=== PATIENT | male | born 1940 | race Caucasian/White ===

== ENCOUNTER → 2017-08-31 15:51 | Outpatient (CLI) | payer MEDICARE, SELFPAY ==
[2017-08-31 16:39] LABS: Absolute Lymphocyte Count 1.52 X10^3/ul (0.83-4.51); Absolute Neutrophil Count 3.4 X10^3/uL (2.0-7.7); Basophil# 0.03 X10^3/uL; Basophil% 0.5 % (0-1); Eosinophil# 0.12 X10^3/uL; Eosinophils% 2.1 % (0-5); Hematocrit 46.1 % (40-54); Hemoglobin 15.7 g/dl (13.0-16.5); Lymphocyte # 1.52 X10^3/ul (4.0); Lymphocyte % 26.5 % (19-41); Mean Corp Hgb Conc 34.1 g/gl (32-36); Mean Corpuscular Hgb 32.8 pg (27.0-32.0); Mean Corpuscular Volume 96.2 fL (80-94); Mean Platelet Vol. 10.9 fl (6.2-12.0); Monocyte# 0.67 X10^3/uL; Monocyte% 11.7 % (0-10); Neutrophil # 3.38 X10^3/uL (2.7-7.7); Platelet Count 218 K/mm3 (150-450); RBC Distribution Width CV 13.2 % (11.6-14.6); RBC Distribution Width SD 45.5 fl (35.1-43.9); Red Blood Count 4.79 M/mm3 (4.6-6.2); White Blood Count 5.7 K/mm3 (4.4-11.0)
[2017-08-31 16:40] LABS: POSITIVE COUNT NO; POSITIVE DIFFERENTIAL NO; POSITIVE MORPHOLOGY NO
[2017-08-31 16:56] LABS: Vitamin B12 > 2000 pg/mL (211-911)
[2017-08-31 16:59] LABS: AST(SGOT) 32 U/L (15-37); Alanine Aminotransfer ALT/SGPT 37 U/L (16-61); Albumin, Serum 3.7 g/dL (3.2-5.0); Alkaline Phosphatase 61 U/L (45-117); Anion Gap 8 (5-15); BUN 23 mg/dL (7-18); BUN/Creat Ratio 22.3 RATIO (10-20); Calcium,Total 9.2 mg/dL (8.5-10.1); Chloride 103 mmol/L (98-107); Cholesterol 203 mg/dL (200); Creatinine, Serum 1.03 mg/dL (0.70-1.30); EST Glomerular Filtration Rate 74 mL/min (>60); Est Glom Filt Rate - Afr Amer 90 mL/min (>60); Globulin 3.8 g/dL (2.2-4.2); Glucose 87 mg/dL (74-106); High Density Lipoprotein 76 mg/dL; PSA,Total- Diagnostic 2.56 ng/mL (0.0-4.0); Potassium 4.4 mmol/L (3.5-5.1); Protein, Total 7.5 g/dL (6.4-8.2); Sodium Level 139 mmol/L (136-145); Thyroid Stim Hormone (TSH) 1.32 uIU/mL (0.358-3.74); Triglycerides 39 mg/dL; Very Low Density Lipoprotein 8 mg/dL (5-40)
== END ==
PROVIDERS: Family Provider Internal Medicine; PCP Internal Medicine; Visit Provider Internal Medicine
DX: R41.89 Other symptoms and signs involving cognitive functions and awareness (principal); I10 Essential (primary) hypertension; N40.0 Benign prostatic hyperplasia without lower urinary tract symptoms
CPT/HCPCS: 80053; 80061; 82607; 84153; 84443; 85025

== ENCOUNTER → 2018-06-19 10:12 | Outpatient (CLI) | payer MEDICARE, SELFPAY ==
--- NOTE | 2018-06-19 10:28 | MRI_ITS ---
STUDY: MRI BRAIN WITH AND WITHOUT CONTRAST REASON FOR EXAM: Male, 77 years old. Dementia, memory issues, speech issues TECHNIQUE: Standardized multiplanar fat and water weighted pulse sequences were obtained. 7 ml of Gadavist contrast material was administered intravenously for the contrast portion of the examination. COMPARISON: None. FINDINGS: Normal size of the ventricles and extra-axial spaces for the patient's age. There are multiple white matter hyperintensities, distributed throughout the deep white matter tracts of the cerebral hemispheres, consistent with moderate chronic white matter ischemic changes. Normal bilateral basal ganglia. Normal thalami. There is no extra-axial fluid accumulation. Normal flow voids within the major intracranial circulation suggesting patency by spin echo criteria. Normal venous enhancement. There is no enhancing intra-axial or extra-axial abnormality. Normal sella turcica, pituitary gland, infundibular stalk, optic chiasm and hypothalamus. Normal tectal plate and pineal gland. Normal midbrain, aubrie and medulla. Normal cerebellum. Normal basal cisterns. Normal bilateral temporal bones. Normal bilateral internal auditory canals. Left globe prosthesis. Cyst in the left maxillary sinus. Normal calvarium and skull base. Normal visualized soft tissue structures. Normal visualized upper cervical spine. MRI/Brain W/WO Contrast IMPRESSION: No evidence of infarct, hemorrhage, mass, or abnormal enhancement. Moderate microangiopathic white matter disease. Electronically Signed: Oscar Roa MD at 12:15 EST Tel , Service support ,
[2018-06-19 10:55] LABS: CREATININE FINGERSTICK 0.8 mg/dL (0.70-1.30); EGFR FINGERSTICK > 60.0000 mL/min (>60)
== END ==
PROVIDERS: Family Provider Internal Medicine; PCP Internal Medicine; Referring Provider Psychiatry & Neurology Neurology; Visit Provider Psychiatry & Neurology Neurology
DX: F03.90 Unspecified dementia, unspecified severity, without behavioral disturbance, psychotic disturbance, mood disturbance, and anxiety (principal)
CPT/HCPCS: 70553; A9585

== ENCOUNTER 2019-09-22 15:47 | Inpatient (IN) | payer MEDICARE, SELFPAY ==
[2019-09-22 15:47] VITALS: BP 124/73; PULSE 76; RESP 18; TEMP 37; O2SAT 97; BMI 25.1
--- NOTE | 2019-09-22 16:08 | EKG12_ITS ---
Test Reason : Blood Pressure : / mmHG Vent. Rate : 084 BPM Atrial Rate : 084 BPM P-R Int : 162 ms QRS Dur : 090 ms QT Int : 360 ms P-R-T Axes : 006 -24 024 degrees QTc Int : 425 ms Normal sinus rhythm Poor R-wave progression Confirmed by JAMIN DUTTA, MOOSE ([id number]), market editor BELLA HESS ([id number]) on 09/23/2019 1:51:27 PM Referred By: JENNIFER Confirmed By:MOOSE NEVILLE MD
--- NOTE | 2019-09-22 16:08 | CT_ITS ---
STUDY: CT BRAIN WITHOUT CONTRAST REASON FOR EXAM: Male, 78 years old. ALTERED MENTAL STATUS, UNABLE TO Walk, increased CONFUSION -- ALZHEIMER RADIATION DOSAGE (If Supplied By Facility): CTDIvol = ( 44.99 ) mGy, DLP = ( 796.11 ) mGycm TECHNIQUE: Transaxial CT imaging of the brain was performed without administration of intravenous contrast material. Individualized dose optimization techniques were used for this CT. COMPARISON: MRI Brain June 19, 2018 FINDINGS: Normal soft tissue structures. Normal calvarium. There is moderate cerebral atrophy with widening of the extra-axial spaces and ventricular dilatation. There are areas of decreased attenuation within the white matter tracts of the supratentorial brain, consistent with microvascular disease changes. Normal basal ganglia and thalami. Normal brainstem. Normal cerebellum. There is calcifications of the cavernous carotid arteries. There is no intracranial hemorrhage. There are no findings of an acute ischemic infarction. The left side maxillary mucosa retention cyst measuring 1.[address]/Brain/Head without Contrast IMPRESSION: Atrophy no visualized evidence of acute hemorrhage infarct or edema. Electronically Signed: Angie Ugarte MD at 17:02 EDT Tel , Service support ,
--- NOTE | 2019-09-22 16:12 | NURSING ---
NO OLD EKGS
--- NOTE | 2019-09-22 16:20 | RAD_ITS ---
STUDY: X-RAY CHEST REASON FOR EXAM: Male, 78 years old. Chest pain TECHNIQUE: Frontal view of the chest COMPARISON: None. FINDINGS: Mild bilateral lower lung zone infiltrates are present. There are no pleural effusions. There is no pneumothorax. The heart is normal in size. The visualized osseous structures are within normal limits. RAD/Chest 1 View (Portable) IMPRESSION: Mild bilateral lower lung zone infiltrates. Electronically Signed: Champ Huber, at 17:03 EDT Tel , Service support ,
[2019-09-22 16:23] LABS: Absolute Lymphocyte Count 0.89 X10^3/uL (0.83-4.51); Absolute Neutrophil Count 13.3 X10^3/uL (2.0-7.7); Basophil# 0.04 X10^3/uL; Basophil% 0.3 % (0-1); Hematocrit 47.3 % (40-54); Hemoglobin 15.6 g/dL (13.0-16.5); Lymphocyte # 0.89 X10^3/ul (4.0); Lymphocyte % 5.7 % (19-41); Mean Corpuscular Hgb 29.9 pg (27.0-32.0); Mean Corpuscular Volume 90.6 fL (80-94); Mean Platelet Vol. 10.1 fl (6.2-12.0); Monocyte# 1.39 X10^3/uL; Monocyte% 8.9 % (0-10); NRBC Flagged by Analyzer 0 % (0-5); Neutrophil # 13.27 X10^3/uL (2.7-7.7); Neutrophil % 84.5 % (47-70); POSITIVE MORPHOLOGY YES; Platelet Count 180 K/mm3 (150-450); RBC Distribution Width CV 12.9 % (11.6-14.6); RBC Distribution Width SD 42.5 fl (35.1-43.9); Red Blood Count 5.22 M/mm3 (4.6-6.2); White Blood Count 15.7 K/mm3 (4.4-11.0)
[2019-09-22 16:28] LABS: Differential Indicated SCAN CRITERIA MET
--- NOTE | 2019-09-22 16:33 | ED.DCSUM_ITS ---
- ER Visit Summary Date of Service: 09/22/19 Chief Complaint: Altered mental status History of Present Illness: The patient is a 78 M 3 of Alzheimer's dementia, hypertension and legally blind. According the family patient is normally pretty self-sufficient in spite of his chronic medical problems. And he states today he has had an altered mental status. Is having trouble walking and getting around. They deny any recent nausea, vomiting or diarrhea. No fever or chills. No known dysuria. No recent falls or head trauma. He is on no blood thinners. They state he was fine yesterday. He is also had no recent med changes in the last week. Patient is accompanied by his son and who are the informants. Physical Examination: Elderly male no acute distress vital signs are stable afebrile. Pulse ox 97% room air no signs of hypoxia. H EENT exam is legally blind. No facial droop. No signs of trauma. Moist because membranes. Tongue midline. Neck nontender no lymphadenopathy. Lungs clear to auscultation. Heart regular rhythm no murmur. Rate about 75. Abdomen soft nontender normal bowel sounds no peritoneal signs. Patient is moving all 4 extremities. He has 5 out of 5 penology teacher strength with both hands stronger on the right but he is right- hand dominant. Dorsi plantarflexion intact. Neurologically he is legally blind. He is awake. He is alert. He follows commands. He does not know day, month, year or president but family said that his baseline with his dementia not new. Back is nontender skin is unremarkable. Test Results: Chest x-ray chronic changes no acute process radiologist discussed the possible infiltrate clinically I do not think so. CT the brain shows no acute abnormality read by the radiologist reviewed by me. EKG is normal sinus rhythm rate 84 no acute signs of MS or ischemia. CBC shows elevated white count of 15,700. Normal hemoglobin 16 no bands. Chemistries unremarkable BUN of 23 creatinine 1.3 normal gap UA positive for infection positive nitrates 25-50 white cells 10-25 red cells no epithelial cells 3+ bacteria culture was sent. This was a cath specimen. Emergency Department Course and Treatment: Elderly male with mental status change. Treated with IV fluids and work-up. Treatment Plan: Patient treated with IV fluids. 1 g IV Rocephin for the UTI. Urine culture sent. Have hospitalist on page for admission. Disposition: [] Impression: Altered mental status Acute UTI History of dementia Legally blind This note was generated with [employer] dictation software. It may contain incorrect words, spelling, and punctuation that were not noted in review of the chart prior to signing ED Disposition - Plan for ED Patient: Referrals: Patrick Moscoso MD [Primary Care Provider] -
[2019-09-22 16:42] LABS: Anion Gap 7 (5-15); BUN 23 mg/dL (7-18); BUN/Creat Ratio 17.2 RATIO (10-20); Chloride 102 mmol/L (98-107); Creatinine, Serum 1.34 mg/dL (0.70-1.30); EST Glomerular Filtration Rate 54 mL/min (>60); Est Glom Filt Rate - Afr Amer 66 mL/min (>60); Estimated Creatinine Clearance 43.97 ml/min; Glucose 131 mg/dL (74-106); Potassium 3.9 mmol/L (3.5-5.1); Sodium Level 137 mmol/L (136-145)
[2019-09-22 16:59] LABS: Differential Comment SCANNED
[2019-09-22] MEDS: 0.9% Normal Saline 1,000 ML 150 ML IV ×2 (17:07→20:18)
[2019-09-22 17:35] LABS: Mucous, Urine 0 SEEN /hpf (<or=2+); Squamous Epithelial Cells - UA 0 SEEN /hpf (0-5)
[2019-09-22 17:37] LABS: Color, Urine Yellow (Yellow); Glucose, Dipstick Normal (Normal); Ketone-Dipstick 5 mg/dl (Negative); Leukocyte Esterase-Dipstick 500 /ul (Negative); Nitrite-Dipstick Positive (Negative); Occult Blood-Urine 150 /ul (Negative); Protein-Dipstick 30 mg/dl (Negative); Specific Gravity, Urine 1.015 (1.002-1.030); Urine Bilirubin Dipstick Negative (Negative); Urine Clarity Cloudy (Clear); Urine Urobilinogen Normal (Normal)
[2019-09-22 17:42] LABS: Red Blood Cells-Urine 10-25 SEEN /hpf (0-5)
[2019-09-22 17:43] LABS: Bacteria 3+ /hpf (None Seen); White Blood Cells 25-50 SEEN /hpf (0-5)
[2019-09-22 17:47] VITALS: BP 139/78; PULSE 70; RESP 26; O2SAT 95
[2019-09-22] MEDS: Ceftriaxone 1 GM/50 ML BAG IV (19:05)
[2019-09-22 19:07] VITALS: BP 124/71; PULSE 77; RESP 20; TEMP 38.3; O2SAT 94
[2019-09-22] MEDS: 0.9% Normal Saline 1,000 ML 999 ML IV (19:07)
[2019-09-22] MEDS: Acetaminophen 500 MG Tablet 1000 MG PO (19:18)
[2019-09-22 19:34] VITALS: RESP 20
[2019-09-22 19:38] VITALS: BP 116/68; PULSE 74; RESP 16; TEMP 36.8; O2SAT 94
[2019-09-22 19:40] VITALS: BMI 25.4
[2019-09-22 19:42] VITALS: BMI 25.4
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
[2019-09-22] MEDS: 0.9% Normal Saline 1,000 ML 100 ML IV (21:51)
[2019-09-22] MEDS: Enoxaparin 40 MG/0.4 ML Syringe SC (21:55)
[2019-09-22] MEDS: Memantine Hydrochloride 10 MG Tablet PO (21:56)
[2019-09-23] VITALS (10 sets, daily range): BP systolic 96–111; BP diastolic 44–64; PULSE 60–80; RESP 14–18; TEMP 36.6–38.3; O2SAT 88–94
[2019-09-23 05:47] LABS: Absolute Lymphocyte Count 1.15 X10^3/uL (0.83-4.51); Absolute Neutrophil Count 17.5 X10^3/uL (2.0-7.7); Basophil# 0.04 X10^3/uL; Basophil% 0.2 % (0-1); Eosinophil# 0.15 X10^3/uL; Eosinophils% 0.7 % (0-5); Hematocrit 40.9 % (40-54); Hemoglobin 13.5 g/dL (13.0-16.5); Lymphocyte # 1.15 X10^3/ul (4.0); Lymphocyte % 5.4 % (19-41); Mean Corpuscular Hgb 29.8 pg (27.0-32.0); Mean Corpuscular Volume 90.3 fL (80-94); Mean Platelet Vol. 10.7 fl (6.2-12.0); Monocyte# 2.09 X10^3/uL; Monocyte% 9.8 % (0-10); NRBC Flagged by Analyzer 0 % (0-5); Neutrophil # 17.47 X10^3/uL (2.7-7.7); Neutrophil % 81.6 % (47-70); POSITIVE DIFFERENTIAL YES; POSITIVE MORPHOLOGY YES; Platelet Count 145 K/mm3 (150-450); RBC Distribution Width CV 13.3 % (11.6-14.6); RBC Distribution Width SD 43.7 fl (35.1-43.9); Red Blood Count 4.53 M/mm3 (4.6-6.2); White Blood Count 21.4 K/mm3 (4.4-11.0)
[2019-09-23 05:48] LABS: Differential Indicated SCAN CRITERIA MET
[2019-09-23 06:07] LABS: Differential Comment SCANNED
[2019-09-23 06:11] LABS: Anion Gap 6 (5-15); BUN 21 mg/dL (7-18); Calcium,Total 8.3 mg/dL (8.5-10.1); Chloride 109 mmol/L (98-107); Creatinine, Serum 1.31 mg/dL (0.70-1.30); EST Glomerular Filtration Rate 56 mL/min (>60); Est Glom Filt Rate - Afr Amer 68 mL/min (>60); Estimated Creatinine Clearance 44.97 ml/min; Glucose 107 mg/dL (74-106); Potassium 3.9 mmol/L (3.5-5.1); Sodium Level 140 mmol/L (136-145)
[2019-09-23] MEDS: Tolterodine Tartrate 2 MG CAP.SA PO (09:05)
[2019-09-23] MEDS: Memantine Hydrochloride 10 MG Tablet PO ×2 (09:06→23:10)
[2019-09-23] MEDS: Polyethylene Glycol 3350 17 GM PACKET PO (09:06)
[2019-09-23] MEDS: Acetaminophen 325 MG Tablet 650 MG PO (09:07)
[2019-09-23] MEDS: Enoxaparin 40 MG/0.4 ML Syringe SC (09:08)
[2019-09-23] MEDS: 0.9% Normal Saline 1,000 ML 999 ML IV (10:24)
--- NOTE | 2019-09-23 10:38 | PN_ITS ---
Patient Problems: Active and Suspected Problems Acute encephalopathy (Acute) UTI (Acute) Subjective: Patient seen and examined. He was noted to be febrile this morning with temperature of 100 Fahrenheit. He still is confused on account of Alzheimer's dementia, but is able to answer questions. He denies any shortness of breath, vomiting, abdominal pain, diarrhea. Feels otherwise negative. Labs and vitals reviewed. WBC noted to have trended up to 21.4. Creatinine is down to 1.31. Pressure was 96/44 this morning. Vitals/I&O's: Vital Signs Temp Pulse Resp BP Pulse Ox 100 F H 70 14 96/44 L 93 09/23/19 09:56 09/23/19 09:56 09/23/19 09:56 09/23/19 09:56 09/23/19 09:56 Oxygen Flow Rate (L/min) 2 Oxygen Delivery Method Nasal Cannula Weight: 172 lb 2.896 oz Body Mass Index (BMI) 25.4 Intake and Output for Last 24 Hours 09/21/19 09/22/19 09/23/19 23:59 23:59 23:59 Intake Total 1760.0 / 1810.0 1050 / 1050 Balance 1760.0 / 1810.0 1050 / 1050 General: Alert, Cooperative, Confused, Disoriented, Lethargic HEENT: Atraumatic, PERRLA, EOMI, Normocephalic Oral: Dry Mucosa Neck: Supple, No JVD, Negative Carotid Bruits Lungs: Clear to auscultation, Normal air movement, No rhonchi, No wheeze, No rales Cardiovascular: Regular rate, Regular Rhythm, Normal S1, Normal S2, No murmurs Abdomen: Bowel Sounds Present, Soft, Non Tender, Non-Distended, No Hepato- splenomegaly Extremities: No clubbing, No cyanosis, No edema, Capillary Refill Less than 3 Seconds Skin: No rashes, No breakdown Musculoskeletal: No Tenderness to Palpation of Joints or Extremities Lymphatic: No Cervical, Supraclavicular, or Inguinal Adenopathy Neurological: Cranial nerves II-XII grossly intact, Neuro grossly intact, Motor Exam 5/5 strength throughout Psych/Mental Status: - - confused Laboratory Results 09/22/19 16:16: WBC 15.7 H, RBC 5.22, Hgb 15.6, Hct 47.3, MCV 90.6, MCH 29.9, MCHC 33.0, RDW Std Deviation 42.5, RDW Coeff of Ivana 12.9, Plt Count 180, MPV 10.1, Immature Gran % (Auto) 0.600, Neut % (Auto) 84.5 H, Lymph % (Auto) 5.7 L, George % (Auto) 8.9, Eos % (Auto) 0.0, Baso % (Auto) 0.3, Absolute Neuts (auto) 13.3 H, Absolute Lymphs (auto) 0.89, Nucleated RBC % 0, Differential Comment SCANNED 09/22/19 16:16: Sodium 137, Potassium 3.9, Chloride 102, Carbon Dioxide 28.0, Anion Gap 7, BUN 23 H, Creatinine 1.34 H, Estim Creat Clear Calc 43.97, Est GFR (MDRD) Af Amer 66, Est GFR (MDRD) Non-Af 54 L, BUN/Creatinine Ratio 17.2, Glucose 131 H, Calcium 9.0 09/22/19 17:25: Urine Color Yellow, Urine Clarity Cloudy, Urine pH 6.0, Ur Specific [place] 1.015, Urine Protein 30 H, Urine Glucose (UA) Normal, Urine Ketones 5 H, Urine Occult Blood 150 H, Urine Nitrite Positive H, Urine Bilirubin Negative, Urine Urobilinogen Normal, Ur Leukocyte Esterase 500 H, Urine RBC 10- 25 SEEN, Urine WBC 25-50 SEEN, Ur Squamous Epith Cells 0 SEEN, Urine Bacteria 3+, Urine Mucus 0 SEEN 09/23/19 05:10: WBC 21.4 H, RBC 4.53 L, Hgb 13.5, Hct 40.9, MCV 90.3, MCH 29.8, MCHC 33.0, RDW Std Deviation 43.7, RDW Coeff of Ivana 13.3, Plt Count 145 L, MPV 10.7, Immature Gran % (Auto) 2.300 H, Neut % (Auto) 81.6 H, Lymph % (Auto) 5.4 L , George % (Auto) 9.8, Eos % (Auto) 0.7, Baso % (Auto) 0.2, Absolute Neuts (auto) 17.5 H, Absolute Lymphs (auto) 1.15, Nucleated RBC % 0, Differential Comment SCANNED, Diff Path Review May foll 09/23/19 05:10: Sodium 140, Potassium 3.9, Chloride 109 H, Carbon Dioxide 25.0, Anion Gap 6, BUN 21 H, Creatinine 1.31 H, Estim Creat Clear Calc 44.97, Est GFR (MDRD) Af Amer 68, Est GFR (MDRD) Non-Af 56 L, BUN/Creatinine Ratio 16.0, Glucose 107 H, Calcium 8.3 L Diagnostic Data Brain CT 09/22/19 16:08 IMPRESSION: Atrophy no visualized evidence of acute hemorrhage infarct or edema. Electronically Signed: Angie Ugarte MD at 17:02 EDT Tel , Service support , Chest X-Ray 09/22/19 16:20 IMPRESSION: Mild bilateral lower lung zone infiltrates. Electronically Signed: Champ Huber at 17:03 EDT Tel , Service support , Current Medications Acetaminophen (Tylenol) 650 mg PO Q6H PRN PRN PRN Reason: Pain Score 1-10/Temp > 100.7 F Last Admin: 09/23/19 09:07 Dose: 650 mg Documented by: Albuterol Sulfate (Ventolin Aerosols) 2.5 mg INHALATION Q2H PRN PRN PRN Reason: Shortness of Breath/Wheezing Amlodipine Besylate (Norvasc) 5 mg PO DAILY [facility] Last Admin: 09/23/19 09:07 Dose: Not Given Documented by: Enoxaparin Sodium (Lovenox) 40 mg SC DAILY [facility] Last Admin: 09/23/19 09:08 Dose: 40 mg Documented by: Glucagon () 1 mg IM .X1 PRN PRN Reason: Hypoglycemia Dextrose (Dextrose 10%-Water) 250 mls @ 999 mls/hr IV .Q16M PRN; Protocol PRN Reason: HYPOGLYCEMIA Sodium Chloride () 1,000 mls @ 999 mls/hr IV .Q1H1M ONE Stop: 09/23/19 11:10 Last Admin: 09/23/19 10:24 Dose: 999 mls/hr Documented by: Piperacillin Sod/Tazobactam (Sod 3.375 gm/ Sodium Chloride) 50 mls @ 12.5 mls /hr IV Q8 [facility] Memantine (Namenda) 10 mg PO BID [facility] Last Admin: 09/23/19 09:06 Dose: 10 mg Documented by: Morphine Sulfate () 2 mg IV Q3H PRN PRN PRN Reason: Pain Score 6-10/10 Ondansetron HCl (Zofran) 4 mg IV Q8H PRN PRN PRN Reason: NAUSEA/VOMITING Oxycodone HCl (Oxyir) 5 mg PO Q4H PRN PRN PRN Reason: Pain Score 4-5/10 Polyethylene Glycol (Miralax) 17 gm PO DAILY [facility] Last Admin: 09/23/19 09:06 Dose: 17 gm Documented by: Prochlorperazine Edisylate (Compazine Iv) 5 mg IV Q4H PRN PRN PRN Reason: Breakthrough nausea/vomiting Senna/Docusate Sodium (Senokot-S, Janessa-Colace) 2 tablet PO BID PRN PRN PRN Reason: Constipation Tolterodine Tartrate (Detrol La) 2 mg PO DAILY [facility] Last Admin: 09/23/19 09:05 Dose: 2 mg Documented by: STROKE Vital Signs/Narrative: Vital Signs Temp Pulse Resp BP Pulse Ox 09/23/19 09:56 100 F H 70 14 96/44 L 93 09/23/19 08:51 101.0 F H 80 17 111/56 L 92 09/23/19 07:45 99.3 F H 77 14 109/54 L 88 Medical Necessity - Tobacco Use Smoking Status: Never smoker Tobacco Use: Non-smoker Assessment/Plan All Active Problems Acute encephalopathy (Acute) UTI (Acute) 1.UTI * UA on admission showed 3+ bacteria. Temperature is up to 100 Fahrenheit this morning WBC has trended up for 15-21.4. * Will order blood cultures and lactic acid. Urine cultures pending. Will broaden antibiotic from IV ceftriaxone to IV Zosyn. * Hydrate with IV fluid normal saline at 150 cc/h. * 2. Acute metabolic encephalopathy due to UTI * Does have baseline dementia but family says he is much more confused than usual. Management as under 1. 3. CARLOS A * And was 1.34 on admission and is trended down to 1.31. Continue hydration with IV fluids. Baseline creatinine is around 1. * 4. Hypertension: Hold amlodipine on account of hypotension this morning. Blood pressure is down to 96/44. We will give a bolus of normal saline 1 L and monitor blood pressure. 5. Hypotension: As under 1. 6. Alzheimer's dementia: On memantine DVT prophylaxis: On Lovenox Code Status: DNRCCA Inpatient E&M: 14023 Subs Hosp L3
[2019-09-23 11:15] LABS: Lactic Acid 1.9 mmol/L (0.4-1.9)
[2019-09-23] MEDS: 0.9% Normal Saline 1,000 ML 150 ML IV ×2 (11:30→18:29)
--- NOTE | 2019-09-23 12:10 | CASEMGMT ---
RN CM Assessment Introduced role of RN CM to patient Yamileth in private waiting area. Patient with h/o Alzheimers Dementia. agrees to s/w this insurance underwriter sales for RNCM assessment. Care providers, pharmacy, and demographics verified. Presentation: AMS Admit Dx: AMS, UTI Re-Admit: No Barriers/Issues: states patient has Alzheimers Dementia and has been Independent with ADLs, however states that she feels patient has not been doing a very well with ADLs lately and needing Aide assistance. States that she is in the process of setting up an assessment through her [employer] with [employer]. This insurance underwriter sales discussed HH skilled need for an Aide to accompanym provided an In Network list- states preference would be [facility]. Also provided Fret[employer] String Instrument Repairer resources if HHC Skilled need not met upon Stability and readiness for DC from hospital. States Over income qualification for [facility] and patient is not a . Patient is legally blind- since a kid. PCP: Patrick Moscoso Specialists: Derm, Neuro- Dr Guerrero- has not visited since changing office location to [facility] Pharmacy: [facility] Insurance: [facility] Rx Benefit: Yes LNOK: Yamileth Saucedo LW/HPOA: [facility] has both, will give staff them to place copy on file. HPOA- Yamileth Saucedo Living Arrangements: Lives with in a [address] set up, has basement. 2 steps to enter through the garage ADL?s: Independent with ambulation and ADLs- see issue above Transportation: DME: CPAP- does not use. Denies any other DME HHC: None SNF: None Goal: Home with HHC- [facility] Preference. DC PLAN: Home with HH for Aide/SN/Possible SW/- RNCM to follow for any possible PT need. TONY Ayon
[2019-09-23 14:36] LABS: Pathologist Review Reviewed
[2019-09-24] MEDS: 0.9% Normal Saline 1,000 ML 150 ML IV ×4 (00:55→22:04)
[2019-09-24 02:34] VITALS: BP 107/61; PULSE 64; RESP 20; TEMP 36.6; O2SAT 94
[2019-09-24 06:32] LABS: Absolute Lymphocyte Count 1.45 X10^3/uL (0.83-4.51); Absolute Neutrophil Count 11.1 X10^3/uL (2.0-7.7); Basophil# 0.04 X10^3/uL; Basophil% 0.3 % (0-1); Eosinophil# 0.21 X10^3/uL; Eosinophils% 1.4 % (0-5); Hematocrit 38.1 % (40-54); Hemoglobin 12.8 g/dL (13.0-16.5); Lymphocyte # 1.45 X10^3/ul (4.0); Lymphocyte % 9.7 % (19-41); Mean Corp Hgb Conc 33.6 g/dL (32-36); Mean Corpuscular Hgb 30.5 pg (27.0-32.0); Mean Corpuscular Volume 90.7 fL (80-94); Mean Platelet Vol. 11.4 fl (6.2-12.0); Monocyte# 2.06 X10^3/uL; Monocyte% 13.7 % (0-10); NRBC Flagged by Analyzer 0 % (0-5); Neutrophil # 11.13 X10^3/uL (2.7-7.7); Neutrophil % 74.1 % (47-70); POSITIVE DIFFERENTIAL YES; Platelet Count 114 K/mm3 (150-450); RBC Distribution Width CV 13.5 % (11.6-14.6); RBC Distribution Width SD 44.4 fl (35.1-43.9)
[2019-09-24 06:37] LABS: Differential Indicated SCAN CRITERIA MET
[2019-09-24 06:57] LABS: Anion Gap 6 (5-15); BUN 17 mg/dL (7-18); BUN/Creat Ratio 13.6 RATIO (10-20); Calcium,Total 7.8 mg/dL (8.5-10.1); Chloride 113 mmol/L (98-107); Creatinine, Serum 1.25 mg/dL (0.70-1.30); EST Glomerular Filtration Rate 59 mL/min (>60); Est Glom Filt Rate - Afr Amer 71 mL/min (>60); Estimated Creatinine Clearance 47.13 ml/min; Glucose 93 mg/dL (74-106); Potassium 3.7 mmol/L (3.5-5.1); Sodium Level 142 mmol/L (136-145)
[2019-09-24 07:02] LABS: Differential Comment SCANNED
[2019-09-24 07:51] VITALS: BP 105/64; PULSE 57; RESP 16; TEMP 36.8; O2SAT 92
[2019-09-24] MEDS: Enoxaparin 40 MG/0.4 ML Syringe SC (09:27)
[2019-09-24] MEDS: Memantine Hydrochloride 10 MG Tablet PO ×2 (09:27→22:04)
[2019-09-24] MEDS: Polyethylene Glycol 3350 17 GM PACKET PO (09:27)
[2019-09-24] MEDS: Tolterodine Tartrate 2 MG CAP.SA PO (09:27)
[2019-09-24 11:33] VITALS: BP 128/77; PULSE 61; RESP 16; TEMP 36.8; O2SAT 92
--- NOTE | 2019-09-24 12:10 | PN_ITS ---
Patient Problems: Active and Suspected Problems Acute encephalopathy (Acute) UTI (Acute) Subjective: Patient seen and examined. Per his nurse, patient was agitated overnight trying to pull out his IV lines. Patient looks calm this morning was able to ambulate with therapy. He was able to answer questions and denied any fever or chills, nausea vomiting, cough, chest pain, abdominal pain, diarrhea. Review of systems otherwise negative. Labs and vitals reviewed. WBC is down to 15 today. Creatinine is 1.25. He has remained afebrile. Vitals/I&O's: Vital Signs Temp Pulse Resp BP Pulse Ox 98.2 F 61 16 128/77 H 92 09/24/19 11:33 09/24/19 11:33 09/24/19 11:33 09/24/19 11:33 09/24/19 11:33 Oxygen Flow Rate (L/min) 2 Oxygen Delivery Method Room Air Weight: 172 lb 2.896 oz Body Mass Index (BMI) 25.4 Intake and Output for Last 24 Hours 09/22/19 09/23/19 09/24/19 23:59 23:59 23:59 Intake Total 1760.0 / 1810.0 3750.0 / 3760.0 2525 / 2525 Balance 1760.0 / 1810.0 3750.0 / 3760.0 2525 / 2525 General: Alert, Cooperative, Confused, HEENT: Atraumatic, PERRLA, EOMI, Normocephalic Oral: Dry Mucosa Neck: Supple, No JVD, Negative Carotid Bruits Lungs: Clear to auscultation, Normal air movement, No rhonchi, No wheeze, No rales Cardiovascular: Regular rate, Regular Rhythm, Normal S1, Normal S2, No murmurs Abdomen: Bowel Sounds Present, Soft, Non Tender, Non-Distended, No Hepato- splenomegaly Extremities: No clubbing, No cyanosis, No edema, Capillary Refill Less than 3 Seconds Skin: No rashes, No breakdown Musculoskeletal: No Tenderness to Palpation of Joints or Extremities Lymphatic: No Cervical, Supraclavicular, or Inguinal Adenopathy Neurological: Cranial nerves II-XII grossly intact, Neuro grossly intact, Motor Exam 5/5 strength throughout Psych/Mental Status: - - confused Microbiology Past 72 Hours 09/22/19 17:25 Urine Catheter - Catheter Urine Culture - Preliminary Presumptive E. coli Laboratory Results 09/23/19 05:10: Diff Path Review Reviewed 09/24/19 05:10: WBC 15.0 H, RBC 4.20 L, Hgb 12.8 L, Hct 38.1 L, MCV 90.7, MCH 30.5, MCHC 33.6, RDW Std Deviation 44.4 H, RDW Coeff of Ivana 13.5, Plt Count 114 L, MPV 11.4, Immature Gran % (Auto) 0.800, Neut % (Auto) 74.1 H, Lymph % (Auto) 9.7 L, [place] % (Auto) 13.7 H, Eos % (Auto) 1.4, Baso % (Auto) 0.3, Absolute Neuts (auto) 11.1 H, Absolute Lymphs (auto) 1.45, Nucleated RBC % 0, Differential Comment SCANNED, Diff Path Review May foll 09/24/19 05:10: Sodium 142, Potassium 3.7, Chloride 113 H, Carbon Dioxide 23.0, Anion Gap 6, BUN 17, Creatinine 1.25, Estim Creat Clear Calc 47.13, Est GFR (MDRD) Af Amer 71, Est GFR (MDRD) Non-Af 59 L, BUN/Creatinine Ratio 13.6, Glucose 93, Calcium 7.8 L Diagnostic Data Brain CT 09/22/19 16:08 IMPRESSION: Atrophy no visualized evidence of acute hemorrhage infarct or edema. Electronically Signed: Angie Ugarte MD at 17:02 EDT Tel , Service support , Chest X-Ray 09/22/19 16:20 IMPRESSION: Mild bilateral lower lung zone infiltrates. Electronically Signed: Champ Huber, at 17:03 EDT Tel , Service support , Current Medications Acetaminophen (Tylenol) 650 mg PO Q6H PRN PRN PRN Reason: Pain Score 1-10/Temp > 100.7 F Last Admin: 09/23/19 09:07 Dose: 650 mg Documented by: Albuterol Sulfate (Ventolin Aerosols) 2.5 mg INHALATION Q2H PRN PRN PRN Reason: Shortness of Breath/Wheezing Amlodipine Besylate (Norvasc) 5 mg PO DAILY [facility] Last Admin: 09/23/19 09:07 Dose: Not Given Documented by: Enoxaparin Sodium (Lovenox) 40 mg SC DAILY [facility] Last Admin: 09/24/19 09:27 Dose: 40 mg Documented by: Glucagon () 1 mg IM .X1 PRN PRN Reason: Hypoglycemia Dextrose (Dextrose 10%-Water) 250 mls @ 999 mls/hr IV .Q16M PRN; Protocol PRN Reason: HYPOGLYCEMIA Piperacillin Sod/Tazobactam (Sod 3.375 gm/ Sodium Chloride) 50 mls @ 12.5 mls/hr IV Q8 [facility] Last Infusion: 09/24/19 10:47 Dose: Infused Documented by: Sodium Chloride () 1,000 mls @ 150 mls/hr IV .Q6H40M [facility] Last Admin: 09/24/19 07:59 Dose: 150 mls/hr Documented by: Memantine (Namenda) 10 mg PO BID [facility] Last Admin: 09/24/19 09:27 Dose: 10 mg Documented by: Morphine Sulfate () 2 mg IV Q3H PRN PRN PRN Reason: Pain Score 6-10/10 Ondansetron HCl (Zofran) 4 mg IV Q8H PRN PRN PRN Reason: NAUSEA/VOMITING Oxycodone HCl (Oxyir) 5 mg PO Q4H PRN PRN PRN Reason: Pain Score 4-5/10 Polyethylene Glycol (Miralax) 17 gm PO DAILY [facility] Last Admin: 09/24/19 09:27 Dose: 17 gm Documented by: Prochlorperazine Edisylate (Compazine Iv) 5 mg IV Q4H PRN PRN PRN Reason: Breakthrough nausea/vomiting Senna/Docusate Sodium (Senokot-S, Janessa-Colace) 2 tablet PO BID PRN PRN PRN Reason: Constipation Tolterodine Tartrate (Detrol La) 2 mg PO DAILY [facility] Last Admin: 09/24/19 09:27 Dose: 2 mg Documented by: STROKE Vital Signs/Narrative: Vital Signs Temp Pulse Resp BP Pulse Ox 09/24/19 11:33 98.2 F 61 16 128/77 H 92 Medical Necessity - Tobacco Use Smoking Status: Never smoker Tobacco Use: Non-smoker Assessment/Plan All Active Problems Acute encephalopathy (Acute) UTI (Acute) 1.UTI * UA on admission showed 3+ bacteria. * Temperature has settled. WBC is down to 15. * Cultured E. coli, sensitive to ceftriaxone and ciprofloxacin. * Continue with IV Zosyn for today until white cell count trends down some more. * * 2. Acute metabolic encephalopathy due to UTI * Does have baseline dementia but family says he is much more confused than usual. Management as under 1. 3. CARLOS A * Resolved. * 4. Hypertension: Amlodipine was held on admission on account of hypotension. Blood pressures however normalized and is 128/77. Will resume BP meds. 5. Hypotension: Solved. 6. Alzheimer's dementia: On memantine DVT prophylaxis: On Lovenox Code Status: DNRCCA Inpatient E&M: 73395 Subs Hosp L2
[2019-09-24 12:33] LABS: Pathologist Review Reviewed
[2019-09-24 14:27] VITALS: BP 112/70; PULSE 64; RESP 16; TEMP 36.9; O2SAT 93
[2019-09-24 20:36] VITALS: BP 138/75; PULSE 70; RESP 16; TEMP 37.1; O2SAT 92
[2019-09-25 02:35] VITALS: BP 144/86; PULSE 70; RESP 16; TEMP 37; O2SAT 92
[2019-09-25] MEDS: 0.9% Normal Saline 1,000 ML 150 ML IV (05:52)
[2019-09-25 06:37] LABS: Absolute Lymphocyte Count 1.31 X10^3/uL (0.83-4.51); Absolute Neutrophil Count 9.1 X10^3/uL (2.0-7.7); Basophil# 0.03 X10^3/uL; Basophil% 0.2 % (0-1); Eosinophil# 0.35 X10^3/uL; Eosinophils% 2.8 % (0-5); Hematocrit 41.8 % (40-54); Hemoglobin 14.2 g/dL (13.0-16.5); Lymphocyte # 1.31 X10^3/ul (4.0); Lymphocyte % 10.4 % (19-41); Mean Corpuscular Hgb 30.3 pg (27.0-32.0); Mean Corpuscular Volume 89.1 fL (80-94); Mean Platelet Vol. 11.5 fl (6.2-12.0); Monocyte# 1.78 X10^3/uL; Monocyte% 14.1 % (0-10); NRBC Flagged by Analyzer 0 % (0-5); Neutrophil # 9.07 X10^3/uL (2.7-7.7); Neutrophil % 71.9 % (47-70); POSITIVE DIFFERENTIAL YES; Platelet Count 127 K/mm3 (150-450); RBC Distribution Width CV 13.2 % (11.6-14.6); RBC Distribution Width SD 43.1 fl (35.1-43.9); Red Blood Count 4.69 M/mm3 (4.6-6.2); White Blood Count 12.6 K/mm3 (4.4-11.0)
[2019-09-25 06:43] LABS: Differential Indicated SCAN CRITERIA MET
[2019-09-25 07:01] LABS: Anion Gap 6 (5-15); BUN 12 mg/dL (7-18); BUN/Creat Ratio 10.7 RATIO (10-20); Calcium,Total 7.9 mg/dL (8.5-10.1); Chloride 112 mmol/L (98-107); Creatinine, Serum 1.12 mg/dL (0.70-1.30); EST Glomerular Filtration Rate 67 mL/min (>60); Est Glom Filt Rate - Afr Amer 81 mL/min (>60); Glucose 86 mg/dL (74-106); Potassium 3.4 mmol/L (3.5-5.1); Sodium Level 142 mmol/L (136-145)
[2019-09-25 07:02] LABS: Differential Comment SCANNED; Platelet Estimate SLT DEC (ADEQ)
[2019-09-25 07:38] VITALS: O2SAT 87
[2019-09-25 08:01] VITALS: BP 154/85; PULSE 60; RESP 16; TEMP 36.9; O2SAT 93
[2019-09-25] MEDS: Tolterodine Tartrate 2 MG CAP.SA PO (08:13)
[2019-09-25] MEDS: Enoxaparin 40 MG/0.4 ML Syringe SC (08:13)
[2019-09-25] MEDS: Memantine Hydrochloride 10 MG Tablet PO (08:13)
[2019-09-25] MEDS: Polyethylene Glycol 3350 17 GM PACKET PO (08:14)
[2019-09-25 09:49] LABS: Pathologist Review Reviewed
--- NOTE | 2019-09-25 10:30 | CASEMGMT ---
Addendum entered by Nini Moya 09/25/19 11:54: JOSE ALBERTO GUY received call back from Florentin at [facility] and they are able to accept the patient. RN CM will fax discharge paperwork when available. Original Note: JOSE ALBERTO GUY in to discuss discharge planning with and patient. would like [facility] at home at discharge. JOSE ALBERTO GUY sent referral and awaiting call back for acceptance. JOSE ALBERTO GUY will continue to monitor this patient and plan for a safe discharge.
--- NOTE | 2019-09-25 11:50 | PCM.DC ---
- Discharge Diagnoses Current Active Problems: Current Active and Chronic Problems Acute encephalopathy (Acute) Alzheimer's dementia (Chronic) UTI (Acute) Hypertension (Chronic) Urge incontinence (Chronic) You will use the following diet at home:: Cardiac Your food should be the consistency of: Regular Your liquids should be the consistency of: Regular/Thin Discharge Activity: Return to Normal Activity Weight Bearing Status: Weight bearing as tolerated Call your doctor if you observe: Fever of 101 or Higher, Shortness of breath, Dizziness, Fainting spells Instructions: Understanding Urinary Tract Infections (UTIs) Allergies/Adverse Reactions: Allergies No Known Allergies Allergy (Verified 09/22/19 15:50) Medications to take at Discharge Amlodipine [Norvasc] 5 mg PO DAILY 09/22/19 Memantine HCl 10 mg PO BID 09/22/19 Multivit-Min/FA/Lycopen/Lutein [Centrum Silver Men Tablet] 1 tab PO DAILY 09/22/19 Oxybutynin Chloride [Ditropan Xl] 10 mg PO DAILY 09/22/19 Cefdinir [Omnicef [equiv]] 300 mg PO Q12H #8 cap 09/25/19 The following prescriptions were given: Cefdinir [Omnicef [equiv]] 300 mg PO Q12H #8 cap Transmission Status: Pending to [facility] [facility] Primary Care Physician: Patrick Moscoso MD [Primary Care Provider] - Please follow up with your Primary Care Physician in: one week Test Results: Test results from this visit will be discussed in further detail at your follow-up appointment, if applicable. Proposed Discharge Date: 09/25/19
--- NOTE | 2019-09-25 11:53 | PCM.DC.SUM ---
Discharge Date and Diagnosis Date of Admission: 09/22/19 Date of Discharge: 09/25/19 - Primary Discharge Diagnosis Active and Suspected Problems Acute encephalopathy (Acute) UTI (Acute) - Secondary Discharge Diagnosis Chronic Problems Alzheimer's dementia (Chronic) Hypertension (Chronic) Urge incontinence (Chronic) Hospital Course and Treatment Imaging Results: Diagnostic Data Brain CT 09/22/19 16:08 IMPRESSION: Atrophy no visualized evidence of acute hemorrhage infarct or edema. Electronically Signed: Angie Ugarte MD at 17:02 EDT Tel , Service support , Chest X-Ray 09/22/19 16:20 IMPRESSION: Mild bilateral lower lung zone infiltrates. Electronically Signed: Champ Huber, at 17:03 EDT Tel , Service support , Operations: None Procedures: None Summary of Care Provided: The patient is a 78 year old M with a past medical history as outlined was admitted through the ED on 09/22/2019 with a complaint of altered mental status for 1 day prior to admission. Patient has a history of Alzheimer's dementia and is also legally blind. He had had a history of urgent continence as well. On admission, he was vitally stable. Leukocytosis was present with white cell count of 15.7%. Creatinine was 1.34 UA was positive for UTI. Was admitted and managed for acute metabolic encephalopathy due to UTI. He was resuscitated with IV fluids and started on IV ceftriaxone. His white cell count initially trended up to 21.4 from 15.7. Antibiotics were therefore switched to IV Zosyn. White cell count then trended down eventually to 12.6 on day of discharge. Urine cultured gram-negative rods and lactose fermenting presumptive E. coli. He remained stable and was discharged home with home health care on 09/25/2019 with a prescription for p.o. Omnicef for 4 days. Blood cultures were negative after 48 hours. He is to follow-up with his primary care doctor within 1 week. Patient seen and examined prior to discharge. He had no complaints. was by his bedside. Review systems otherwise negative. Labs and vitals reviewed. Home medication reviewed and reconciled. o/e: Vital Signs Height 5 ft 9 in Weight: 172 lb 2.896 oz Weight in Pounds 172.2 lbs Pulse Ox 93 Temperature 98.5 F Pulse Rate 60 Respiratory Rate 16 Blood Pressure 154/85 Blood Pressure Position Semi-Fowlers [] General: Alert, Cooperative, Confused, HEENT: Atraumatic, PERRLA, EOMI, Normocephalic Oral: Dry Mucosa Neck: Supple, No JVD, Negative Carotid Bruits Lungs: Clear to auscultation, Normal air movement, No rhonchi, No wheeze, No rales Cardiovascular: Regular rate, Regular Rhythm, Normal S1, Normal S2, No murmurs Abdomen: Bowel Sounds Present, Soft, Non Tender, Non-Distended, No Hepato-splenomegaly Extremities: No clubbing, No cyanosis, No edema, Capillary Refill Less than 3 Seconds Skin: No rashes, No breakdown Musculoskeletal: No Tenderness to Palpation of Joints or Extremities Lymphatic: No Cervical, Supraclavicular, or Inguinal Adenopathy Neurological: Cranial nerves II-XII grossly intact, Neuro grossly intact, Motor Exam 5/5 strength throughout Psych/Mental Status: - - normal affect Plan as above. - Physical Exam Vitals/I&O's: Vital Signs Temp Pulse Resp BP Pulse Ox 98.5 F 60 16 154/85 H 93 09/25/19 08:01 09/25/19 08:01 09/25/19 08:01 09/25/19 08:01 09/25/19 08:01 Oxygen Flow Rate (L/min) 2 Oxygen Delivery Method Nasal Cannula Weight: 172 lb 2.896 oz Body Mass Index (BMI) 25.4 Intake and Output for Last 24 Hours 09/23/19 09/24/19 09/25/19 23:59 23:59 23:59 Intake Total 3750.0 / 3760.0 4925 / 4925 1250 / 1250 Output Total 150 / 150 Balance 3750.0 / 3760.0 4925 / 4925 1100 / 1100 Microbiology Past 72 Hours 09/23/19 09:39 Blood Culture (Wb) - Right Hand Blood Culture - Preliminary No growth in 48 hours. 09/23/19 09:32 Blood Culture (Wb) - Anticubital Right Blood Culture - Preliminary No growth in 48 hours. 09/22/19 17:25 Urine Catheter - Catheter Urine Culture - Preliminary Presumptive E. coli GNR lactose access service representative Laboratory Results 09/24/19 05:10: Diff Path Review Reviewed 09/25/19 05:35: WBC 12.6 H, RBC 4.69, Hgb 14.2, Hct 41.8, MCV 89.1, MCH 30.3, MCHC 34.0, RDW Std Deviation 43.1, RDW Coeff of Ivana 13.2, Plt Count 127 L, MPV 11.5, Immature Gran % (Auto) 0.600, Neut % (Auto) 71.9 H, Lymph % (Auto) 10.4 L, [place] % (Auto) 14.1 H, Eos % (Auto) 2.8, Baso % (Auto) 0.2, Absolute Neuts (auto) 9.1 H, Absolute Lymphs (auto) 1.31, Nucleated RBC % 0, Differential Comment SCANNED, Diff Path Review Reviewed, Platelet Estimate SLT 09/25/19 05:35: Sodium 142, Potassium 3.4 L, Chloride 112 H, Carbon Dioxide 24.0, Anion Gap 6, BUN 12, Creatinine 1.12, Estim Creat Clear Calc 52.60, Est GFR (MDRD) Af Amer 81, Est GFR (MDRD) Non-Af 67, BUN/Creatinine Ratio 10.7, Glucose 86, Calcium 7.9 L Current Medications Acetaminophen (Tylenol) 650 mg PO Q6H PRN PRN PRN Reason: Pain Score 1-10/Temp > 100.7 F Last Admin: 09/23/19 09:07 Dose: 650 mg Documented by: Albuterol Sulfate (Ventolin Aerosols) 2.5 mg INHALATION Q2H PRN PRN PRN Reason: Shortness of Breath/Wheezing Amlodipine Besylate (Norvasc) 5 mg PO DAILY [facility] Last Admin: 09/23/19 09:07 Dose: Not Given Documented by: Enoxaparin Sodium (Lovenox) 40 mg SC DAILY [facility] Last Admin: 09/25/19 08:13 Dose: 40 mg Documented by: Glucagon () 1 mg IM .X1 PRN PRN Reason: Hypoglycemia Dextrose (Dextrose 10%-Water) 250 mls @ 999 mls/hr IV .Q16M PRN; Protocol PRN Reason: HYPOGLYCEMIA Piperacillin Sod/Tazobactam (Sod 3.375 gm/ Sodium Chloride) 50 mls @ 12.5 mls/hr IV Q8 [facility] Last Admin: 09/25/19 05:52 Dose: 12.5 mls/hr Documented by: Sodium Chloride () 1,000 mls @ 150 mls/hr IV .Q6H40M [facility] Last Admin: 09/25/19 05:52 Dose: 150 mls/hr Documented by: Memantine (Namenda) 10 mg PO BID [facility] Last Admin: 09/25/19 08:13 Dose: 10 mg Documented by: Morphine Sulfate () 2 mg IV Q3H PRN PRN PRN Reason: Pain Score 6-10/10 Ondansetron HCl (Zofran) 4 mg IV Q8H PRN PRN PRN Reason: NAUSEA/VOMITING Oxycodone HCl (Oxyir) 5 mg PO Q4H PRN PRN PRN Reason: Pain Score 4-5/10 Polyethylene Glycol (Miralax) 17 gm PO DAILY [facility] Last Admin: 09/25/19 08:14 Dose: 17 gm Documented by: Prochlorperazine Edisylate (Compazine Iv) 5 mg IV Q4H PRN PRN PRN Reason: Breakthrough nausea/vomiting Senna/Docusate Sodium (Senokot-S, Janessa-Colace) 2 tablet PO BID PRN PRN PRN Reason: Constipation Tolterodine Tartrate (Detrol La) 2 mg PO DAILY [facility] Last Admin: 09/25/19 08:13 Dose: 2 mg Documented by: Discharge Diet: Low fat/ Low Cholesterol Discharge Activity: Return to Normal Activity Weight Bearing Status: Weight bearing as tolerated Call your doctor if you observe: Fever of 101 or Higher, Shortness of breath, Dizziness, Fainting spells Home Medications: Medications to take at Discharge Amlodipine [Norvasc] 5 mg PO DAILY 09/22/19 Memantine HCl 10 mg PO BID 09/22/19 Multivit-Min/FA/Lycopen/Lutein [Centrum Silver Men Tablet] 1 tab PO DAILY 09/22/19 Oxybutynin Chloride [Ditropan Xl] 10 mg PO DAILY 09/22/19 Cefdinir [Omnicef [equiv]] 300 mg PO Q12H #8 cap 09/25/19 Following Prescrptions Were Given to Patient: Cefdinir [Omnicef [equiv]] 300 mg PO Q12H #8 cap Transmission Status: Received by [facility] Primary Care Physician: Patrick Moscoso MD [Primary Care Provider] - Please follow up with your Primary Care Physician in: one week Patient Instructions: Understanding Urinary Tract Infections (UTIs) Disposition: Home with Home Health Minutes spent on discharge:: 40 Patient Condition:: Stable Medical Necessity - Tobacco Use Smoking Status: Never smoker Tobacco Use: Non-smoker Meaningful Use Info Meaningful Use Diagnoses (Choose all that apply): None applicable Inpatient E&M: 72508 Disch Hosp
== END 2019-09-25 13:31 | disposition home or self-care (01) | DRG 689 ==
LOC: ED 17:04 → MS3 20:54
PROVIDERS: Admitting Provider Internal Medicine; Emergency Provider Emergency Medicine; PCP Internal Medicine; Visit Provider Student in an Organized Health Care Education/Training Program
DX: N30.00 Acute cystitis without hematuria (principal); G93.41 Metabolic encephalopathy; N17.9 Acute kidney failure, unspecified; F02.80 Dementia in other diseases classified elsewhere, unspecified severity, without behavioral disturbance, psychotic disturbance, mood disturbance, and anxiety; G30.9 Alzheimer's disease, unspecified; Z66 Do not resuscitate; B96.20 Unspecified Escherichia coli [E. coli] as the cause of diseases classified elsewhere; N39.41 Urge incontinence; I10 Essential (primary) hypertension; H54.8 Legal blindness, as defined in USA
CPT/HCPCS: 36415; 70450; 71045; 80048; 81001; 83605; 85025; 87040; 87077; 87086; 87088; 87186; 92526; 92610; 93005; 97162; 97166; 99251; 99284; J7030; G0463

== ENCOUNTER 2020-09-04 20:40 | Inpatient (IN) | payer MEDICARE, SELFPAY ==
[2020-09-04] VITALS (8 sets, daily range): BP systolic 98–137; BP diastolic 62–86; PULSE 61–79; RESP 17–24; TEMP 37.7–38.4; O2SAT 88–94; BMI 27.6
--- NOTE | 2020-09-04 20:49 | EKG12_ITS ---
Test Reason : CONFUSION Blood Pressure : / mmHG Vent. Rate : 083 BPM Atrial Rate : 083 BPM P-R Int : 136 ms QRS Dur : 086 ms QT Int : 386 ms P-R-T Axes : 019 -49 040 degrees QTc Int : 453 ms Sinus rhythm with occasional Premature ventricular complexes Left axis deviation Abnormal ECG Confirmed by EDGAR DUTTA, WOO ([id number]), commissioning editor LUIS MANUEL SIN ([id number]) on 09/07/2020 11:27:57 AM Referred By: MARLON Confirmed By:WOO HERNÁNDEZ MD
--- NOTE | 2020-09-04 20:53 | ED.DCSUM_ITS ---
History of Present Illness Informant: Family, Premium Note Interest Calculator Clerk Narrative: 79-year-old male with a history of dementia is brought to the emergency department via EMS. states that he has had constipation since Sunday. On he had his second Covid shot. She states that it is traumatic for him to get loaded up in a car and leave the house and he seemed different when he came home. He developed fever by the next day felt weak. Patient does not speak very much and does not answer any questions and I am asking him. provides the history. EMS noted a fever of 101. She notes over the past couple months his mental status has been deteriorating faster than it had. In September 2019 patient had altered mental status and UTI. He has not been hospitalized at [facility] since. <Ronny Warren - Last Filed: 09/04/20 22:10> <Belem Mcfarland - Last Filed: 09/04/20 22:44> Chief Complaint: Confusion - Past Medical History (1) UTI Status: Acute (2) Alzheimer's dementia Status: Chronic (3) Hypertension Status: Chronic (4) Urge incontinence Status: Chronic <Ronny Warren - Last Filed: 09/04/20 22:10> Past Medical History Surgical History: noncontributory Lives: Spouse/ Significant Other Smoking Status: Unknown if ever smoked Drugs: None <Ronny Warren - Last Filed: 09/04/20 22:10> <Belem Mcfarland - Last Filed: 09/04/20 22:44> - Allergies and Home Meds Allergies/Adverse Reactions: Allergies No Known Allergies Allergy (Verified 09/04/20 20:47) Primary Care Physician: Patrick Moscoso MD [Primary Care Provider] - Review of Systems General: Reports: Chills, Fever, Malaise. Denies: Sweats Eyes: Denies: Visual changes - bilaterally, Diplopia ENT: Denies: Rhinorrhea, Sore throat Cardiovascular: Denies: Chest pain, Palpitations Respiratory: Denies: Dyspnea, Cough, Dyspnea on exertion Gastrointestinal: Reports: Abdominal pain, Constipation. Denies: Nausea, Vomiting, Diarrhea, Melena, Hematochezia Genitourinary: Denies: Dysuria, Hematuria, Frequency Musculoskeletal: Denies: Back pain, Extremity Pain Skin: Denies: Rash, Wounds Neurological: Denies: Headache, Weakness, Numbness <[place]con[place] FallsRonny - Last Filed: 09/04/20 22:10> Physical Exam Vital Signs/Narrative: Vital Signs Temp Pulse Resp BP Pulse Ox 09/04/20 20:45 100.8 F H 79 17 137/82 H 94 09/04/20 20:41 100.8 F H 79 17 137/82 H 94 Inital Vital Signs reviewed: Yes General: Well nourished, Well developed, No Acute Distress Head: Normocephalic, Atraumatic Eyes: Perrl, EOMI ENT: Moist mucous membranes, No rhinorrhea Neck: Supple, Nontender Cardiovascular: Regular rate, Regular rhythm, No murmurs Respiratory: No distress, CTA bilaterally, Chest nontender Abdomen: Soft, Nondistended, Normal bowel sounds, Tender - Patient winces when I palpate the abdomen. Back: Nontender, Normal Inspection Extremities: Nontender, No edema Skin: Normal color, No rash Neurological: Normal Strength, Normal Sensation, Lethargic <Ronny Warren - Last Filed: 09/04/20 22:10> Vital Signs/Narrative: Vital Signs Temp Pulse Resp BP Pulse Ox 09/04/20 22:22 101.1 F H 69 17 114/86 H 92 09/04/20 21:46 101 F H 76 24 H 107/69 93 09/04/20 21:38 101 F H 76 24 H 107/69 93 09/04/20 20:45 100.8 F H 79 17 137/82 H 94 09/04/20 20:41 100.8 F H 79 17 137/82 H 94 <Belem Mcfarland - Last Filed: 09/04/20 22:44> Diagnostic/Tx/Re-eval Clinical Impression(s) from Imaging Studies Chest X-Ray 09/04/20 21:24 IMPRESSION: Chronic interestitial changes. No radiographic evidence of acute cardiopulmonary disease. at 2152 Reported and signed by: Lionel Golden MD Electronically Signed: Lionel Golden MD at 21:51 EST Tel , Service support , Laboratory Last Values WBC 8.2 K/mm3 (4.4-11.0) 09/04/20 20: RBC 5.29 M/mm3 (4.6-6.2) 09/04/20 20: Hgb 16.8 g/dL (13.0-16.5) H 09/04/20 20: Hct 48.3 % (40-54) 09/04/20 20: MCV 91.3 fL (80-94) 09/04/20: MCH 31.8 pg (27.0-32.0) 09/04/20: MCHC 34.8 g/dL (32-36) 09/04/20: RDW Std Deviation 42.1 fl (35.1-43.9) 09/04/20: RDW Coeff of Ivana 12.8 % (11.6-14.6) 09/04/20: Plt Count 237 K/mm3 (150-450) 09/04/20: MPV 10.5 fl (6.2-12.0) 09/04/20: Immature Gran % (Auto) 0.500 % (0.0-0.9) 09/04/20: Neut % (Auto) 66.7 % (47-70) 09/04/20: Lymph % (Auto) 13.2 % (19-41) L 09/04/20 20: [place] % (Auto) 17.6 % (0-10) H 09/04/20: Eos % (Auto) 1.5 % (0-5) 09/04/20: Baso % (Auto) 0.5 % (0-1) 09/04/20: Absolute Neuts (auto) 5.5 X10^3/uL (2.0-7.7) 09/04/20: Absolute Lymphs (auto) 1.09 X10^3/uL (0.83-4.51) 09/04/20 20: Nucleated RBC % 0 % (0-5) 09/04/20: PT 13.1 SECONDS (11.7-14.9) 02/20/21 20:32 INR 1.0 09/04/20 20:32 APTT 31.5 Seconds (24.1-36.2) 09/04/20 20:32 Sodium 138 mmol/L (136-145) 09/04/20 20:32 Potassium 3.6 mmol/L (3.5-5.1) 09/04/20 20:32 Chloride 100 mmol/L (98-107) 09/04/20 20:32 Carbon Dioxide 33.0 mmol/L (21.0-32.0) H 09/04/20 20:32 Anion Gap 5 (5-15) 09/04/20 20:32 BUN 24 mg/dL (7-18) H 09/04/20 20:32 Creatinine 1.43 mg/dL (0.70-1.30) H 09/04/20 20:32 Estim Creat Clear Calc 40.51 ml/min 09/04/20 20:32 Est GFR (MDRD) Af Amer 61 mL/min (>60) 09/04/20 20:32 Est GFR (MDRD) Non-Af 50 mL/min (>60) L 09/04/20 20:32 BUN/Creatinine Ratio 16.8 RATIO (10-20) 09/04/20 20:32 Glucose 111 mg/dL (74-106) H 09/04/20 20:32 Lactic Acid 1.0 mmol/L (0.4-1.9) 09/04/20 20:50 Calcium 9.3 mg/dL (8.5-10.1) 09/04/20 20:32 Total Bilirubin 0.50 mg/dL (0.20-1.00) 09/04/20 20:32 AST 34 U/L (15-37) 09/04/20 20:32 ALT 70 U/L (16-61) H 09/04/20 20:32 Alkaline Phosphatase 79 U/L (45-117) 09/04/20 20:32 Troponin I < 0.015 ng/mL (<0.045) 09/04/20 20:32 Total Protein 7.5 g/dL (6.4-8.2) 09/04/20 20:32 Albumin 3.0 g/dL (3.2-5.0) L 09/04/20 20:32 Globulin 4.5 g/dL (2.2-4.2) H 09/04/20 20:32 Albumin/Globulin Ratio 0.7 RATIO (0.9-2.4) L 09/04/20: Lipase 117 U/L (73-393) 09/04/20 20:32 Urine Color Yellow (Yellow) 09/04/20 21:05 Urine Clarity Cloudy (Clear) 09/04/20 21: Urine pH 6.5 (5.0 - 8.0) 09/04/20 21:05 Ur Specific [place] 1.010 (1.002-1.030) 09/04/20 21: Urine Protein 30 mg/dl (Negative) H 09/04/20 21: Urine Glucose (UA) Normal mg/dl (Normal) 09/04/20 21: Urine Ketones 5 mg/dl (Negative) H 09/04/20 21: Urine Occult Blood 150 /ul (Negative) H 09/04/20 21: Urine Nitrite Positive (Negative) H 09/04/20 21: Urine Bilirubin Negative mg/dL (Negative) 09/04/20 21: Urine Urobilinogen Normal mg/dl (Normal) 09/04/20 21:05 Ur Leukocyte Esterase 500 /ul (Negative) H 09/04/20 21:05 Urine RBC 25-50 SEEN /hpf (0-5) 09/04/20 21:05 Urine WBC 50-100 SEEN /hpf (0-5) 09/04/20 21:05 Ur Squamous Epith Cells 0 SEEN /hpf (0-5) 09/04/20 21: Ur Transition Epith Cell 0-5 SEEN /hpf (0-5) 09/04/20 21:05 Urine Bacteria 4+ /hpf (None Seen) 09/04/20 21: Hyaline Casts 0-5 SEEN /lpf (0-5) 09/04/20 21: Urine Mucus 0 SEEN /hpf (<or=2+) 09/04/20: - EKG Initial EKG Interpretation: Sinus Rhythm - EKG demonstrates a sinus rhythm with PVCs. Heart rate 83. No concerning features of ACS - Medical Decision Making Patient received Tylenol for fever and IV fluids. He also received Rocephin for urinary tract infection. Based on his vital signs and presence of a confirmed infection he meets sepsis criteria. My interpretation of the portable chest x-ray is no acute process. Because of his abdominal pain and fever a CT of the abdomen pelvis was obtained which is currently pending. Plan will be admission into the hospital. <Ronny Warren - Last Filed: 09/04/20 22:10> - Medical Decision Making Patient signed out to me pending CT scan. CT abdomen pelvis read as constipation. No evidence of obstruction. Per Dr. Warren's plan patient will be admitted admit for IV antibiotics and bowel regimen. <Belem Mcfarland - Last Filed: 09/04/20 22:44> ED Disposition <Ronny Warren - Last Filed: 09/04/20 22:10> <Belem Mcfarland - Last Filed: 09/04/20 22:44> - Plan for ED Patient: Disposition: [facility] Diagnosis: UTI, Acute encephalopathy, Sepsis, Constipation Referrals: Patrick Moscoso MD [Primary Care Provider] -
[2020-09-04] MEDS: 0.9% Normal Saline 1,000 ML 1000 ML IV (20:56)
[2020-09-04] MEDS: Acetaminophen 650 MG Suppository RECTAL (21:09)
[2020-09-04 21:12] LABS: Absolute Lymphocyte Count 1.09 X10^3/uL (0.83-4.51); Absolute Neutrophil Count 5.5 X10^3/uL (2.0-7.7); Basophil# 0.04 X10^3/uL; Basophil% 0.5 % (0-1); Eosinophil# 0.12 X10^3/uL; Eosinophils% 1.5 % (0-5); Hematocrit 48.3 % (40-54); Hemoglobin 16.8 g/dL (13.0-16.5); Lymphocyte # 1.09 X10^3/ul (4.0); Lymphocyte % 13.2 % (19-41); Mean Corp Hgb Conc 34.8 g/dL (32-36); Mean Corpuscular Hgb 31.8 pg (27.0-32.0); Mean Corpuscular Volume 91.3 fL (80-94); Mean Platelet Vol. 10.5 fl (6.2-12.0); Monocyte# 1.45 X10^3/uL; Monocyte% 17.6 % (0-10); NRBC Flagged by Analyzer 0 % (0-5); Neutrophil # 5.49 X10^3/uL (2.7-7.7); Neutrophil % 66.7 % (47-70); Platelet Count 237 K/mm3 (150-450); RBC Distribution Width CV 12.8 % (11.6-14.6); RBC Distribution Width SD 42.1 fl (35.1-43.9); Red Blood Count 5.29 M/mm3 (4.6-6.2); White Blood Count 8.2 K/mm3 (4.4-11.0)
[2020-09-04 21:22] LABS: Color, Urine Yellow (Yellow); Glucose, Dipstick Normal (Normal); Ketone-Dipstick 5 mg/dl (Negative); Leukocyte Esterase-Dipstick 500 /ul (Negative); Mucous, Urine 0 SEEN /hpf (<or=2+); Nitrite-Dipstick Positive (Negative); Occult Blood-Urine 150 /ul (Negative); Protein-Dipstick 30 mg/dl (Negative); Squamous Epithelial Cells - UA 0 SEEN /hpf (0-5); Urine Bilirubin Dipstick Negative (Negative); Urine Clarity Cloudy (Clear); Urine Urobilinogen Normal (Normal); Urine pH 6.5 (5.0 - 8.0)
--- NOTE | 2020-09-04 21:24 | RAD_ITS ---
HISTORY: per has been constipated since Sunday. altered mental status since Sunday and weakness EXAM: XR Chest 1 View COMPARISON: September 22, 2019 FINDINGS: LINES/DEVICES: None. LUNGS: There are chronic interstitial changes. No pneumothorax. No consolidation or effusion. MEDIASTINUM AND CARDIOVASCULAR STRUCTURES: Cardiac silhouette not enlarged. Central airways and mediastinal contour are unremarkable. Athersclerotic plaque within the aortic arch. BONES AND SOFT TISSUES: Thoracic spondylosis. RAD/Chest 1 View (Portable) IMPRESSION: Chronic interestitial changes. No radiographic evidence of acute cardiopulmonary disease. at 2152 Reported and signed by: Lionel Golden MD Electronically Signed: Lionel Golden MD at 21:51 EST Tel , Service support ,
[2020-09-04 21:30] LABS: Prothrombin Time (Protime)PT. 13.1 SECONDS (11.7-14.9)
[2020-09-04 21:31] LABS: Partial Thromboplast Time 31.5 Seconds (24.1-36.2)
[2020-09-04 21:32] LABS: ALB/GLOB Ratio 0.7 RATIO (0.9-2.4); AST(SGOT) 34 U/L (15-37); Alanine Aminotransfer ALT/SGPT 70 U/L (16-61); Alkaline Phosphatase 79 U/L (45-117); Anion Gap 5 (5-15); BUN 24 mg/dL (7-18); BUN/Creat Ratio 16.8 RATIO (10-20); Calcium,Total 9.3 mg/dL (8.5-10.1); Chloride 100 mmol/L (98-107); Creatinine, Serum 1.43 mg/dL (0.70-1.30); EST Glomerular Filtration Rate 50 mL/min (>60); Est Glom Filt Rate - Afr Amer 61 mL/min (>60); Estimated Creatinine Clearance 40.51 ml/min; Globulin 4.5 g/dL (2.2-4.2); Glucose 111 mg/dL (74-106); Lipase 117 U/L (73-393); Potassium 3.6 mmol/L (3.5-5.1); Protein, Total 7.5 g/dL (6.4-8.2); Sodium Level 138 mmol/L (136-145)
[2020-09-04 21:37] LABS: Bacteria 4+ /hpf (None Seen)
--- NOTE | 2020-09-04 21:38 | CT_ITS ---
EXAM: CT ABDOMEN AND PELVIS WITH INTRAVENOUS CONTRAST : 1940 CLINICAL INDICATION: CONSTIPATION AND WEAKNESS SINCE SUNDAY,ABDOMINAL PAIN AND FEVERHX:HTN,ALZHEIMER'S,DEMENTIA TECHNIQUE: Helically acquired images were obtained of the abdomen and pelvis with intravenous contrast. This CT exam was performed using one or more of the following dose reduction techniques: automated exposure control, adjustment of the mA and/or kV according to patient size, and/or use of iterative reconstruction technique. This report was created using [employer] report generation technology. CONTRAST: IV 100mL Isovue-370 COMPARISON: None. FINDINGS: LOWER THORAX: Interstitial pulmonary edema. Basilar atelectasis. Coronary artery calcific ASCVD. Small hiatal hernia. No cardiomegaly. No significant pericardial effusion. ABDOMEN: LIVER: Unremarkable. Homogeneous. No focal mass. GALLBLADDER AND BILE DUCTS: Unremarkable. No calcified gallstones. No gallbladder distention or wall edema. No intra- or extrahepatic biliary ductal dilation. PANCREAS: Unremarkable. No focal cystic or solid mass. SPLEEN: Unremarkable. Normal size without focal cystic or solid mass. ADRENALS: Unremarkable. No nodules. KIDNEYS AND URETERS: Multiple hypodense masses exophytic to be atrophic kidneys consistent with autosomal dominant polycystic disease. No hydronephrosis. 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 Rectum is distended with impacted stool. Increased stool burden throughout the colon consistent with constipation. No focal inflammatory change. PELVIS: APPENDIX: I cannot identify the appendix. BLADDER: Gutierrez catheter decompresses the urinary bladder. REPRODUCTIVE: The prostate gland is not enlarged. ABDOMEN and PELVIS: INTRAPERITONEAL SPACE: Unremarkable. No ascites or other fluid collection. No free air. BONES/JOINTS: Old insufficiency wedge compression fracture to the L1 vertebral body. Multilevel degenerative disc disease with facet arthropathy. Loss of disc height, endplate sclerosis, and enthesophytes. Anterior subluxation of L5 on S1 by 3 mm this is chronic. No suspicious lytic or blastic abnormality. SOFT TISSUES: Unremarkable. No discrete abdominal or pelvic wall hernia. VASCULATURE: Atherosclerosis within the abdominal aorta without aneurysm or dissection. LYMPH NODES: Unremarkable. No enlarged lymph nodes. CT/Abdomen/Pelvis W IV Cont ONLY IMPRESSION: Constipation Individualized dose optimization techniques were used for this CT. at 2241 Reported and signed by: Lionel Golden MD Electronically Signed: Lionel Golden MD at 22:40 EST Tel , Service support ,
[2020-09-04 21:39] LABS: Hyaline Cast 0-5 SEEN /lpf (0-5)
[2020-09-04 21:40] LABS: Red Blood Cells-Urine 25-50 SEEN /hpf (0-5); White Blood Cells 50-100 SEEN /hpf (0-5)
[2020-09-04 21:44] LABS: Transitional Epithelial - Ur 0-5 SEEN /hpf (0-5)
[2020-09-04] MEDS: Ceftriaxone 1 GM/50 ML BAG IV (22:21)
[2020-09-04] MEDS: 0.9% Normal Saline 1,000 ML 150 ML IV (22:22)
--- NOTE | 2020-09-04 23:26 | HP.PCM_ITS ---
Problem List (1) Sepsis Status: Acute (2) Constipation Status: Acute (3) Sepsis Status: Acute (4) UTI Status: Acute (5) Alzheimer's dementia Status: Chronic (6) Hypertension Status: Chronic (7) Urge incontinence Status: Chronic (8) Acute encephalopathy Status: Acute History of Present Illness Date of Admission: 09/04/20 Chief Complaint: altered mental status History was taken from patient since patient is confused. 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 His symptoms started 2 days prior to presentation and after a second dose of a Covid 19 vaccination. Patient is unable or unwilling to walk. He could not get up from the chair.. Also his reported that patient's last bowel movement was about 6 days prior to presentation. Although he has chronic constipation this is worse than his baseline. Patient's report that the patient's symptoms is reminiscent of when he had a UTI. Patient had a fever at home. Patient was admitted on 09/22/2019 and discharged on 09/25/2019 with acute encephalopathy secondary to UTI. Past Medical History Past Medical History (Chronic Problems): Chronic Problems Alzheimer's dementia (Chronic) Hypertension (Chronic) Urge incontinence (Chronic) Allergies No Known Allergies Allergy (Verified 09/04/20 20:47) Home Medications: Ambulatory Orders Medication Instructions Recorded Memantine HCl 10 mg PO BID 09/22/19 Multivit-Min/FA/Lycopen/Lutein 1 tab PO DAILY 09/22/19 [Centrum Silver Men Tablet] Cetirizine HCl [Zyrtec] 5 mg PO BID 09/04/20 Hydrochlorothiazide [Hctz] 25 mg PO DAILY 09/04/20 Sertraline HCl 25 mg PO DAILY 09/04/20 Surgical History: - - Prosthetic eye surgery; bilateral shoulder surgery; finger surgery; trabeculectomy. Lives: Spouse/ Significant Other Smoking Status: Never smoker Drugs: None - *Family History Maternal History Items: Dementia Paternal History Items: - - Patient'S who provided history did not know patient's paternal medical history. Review of Systems Constitutional: Reports: Anorexia, Fever, Malaise, Weakness. Denies: Chills, Weight Change HEENT: Denies: Head Aches, Sinus Congestion, Sinus Drainage Cardiovascular: Denies: Chest Pain, Palpitations Respiratory: Denies: Cough, Shortness of breath at rest, Sputum production Gastrointestinal: Reports: Constipation. Denies: Abdominal Pain, Nausea, Vomiting Genitourinary: Reports: Incontinence - This been good for the past 6 months. Denies: Dysuria Musculoskeletal: Denies: Joint Pain, Joint Tenderness Skin: Denies: Rash, Wounds Neurological: Denies: Numbness, Tingling, Focal weakness Psychiatric: Denies: Anxiety, Depression, Homicidal Ideations, Suicidal Ideations Hematologic/ Lymphatic: Denies: Easy Bruising, Easy Bleeding VTE Information - Inpt Only VTE Present on Admission: No VTE Mechan Device Prophylaxis: None VTE Pharm Prophylaxis ordered?: Yes Patient Problems: Active and Suspected Problems Acute encephalopathy (Acute) UTI (Acute) Sepsis (Acute) Constipation (Acute) Sepsis (Acute) - Physical Exam Vitals/I&O's: Vital Signs Temp Pulse Resp BP Pulse Ox 100 F H 63 19 H 110/67 94 09/04/20 23:19 09/04/20 23:19 09/04/20 23:19 09/04/20 23:19 09/04/20 23:19 Oxygen Flow Rate (L/min) 2 Oxygen Delivery Method Nasal Cannula Weight: 84.8 kg Body Mass Index (BMI) 27.6 Intake and Output for Last 24 Hours 09/02/20 09/03/20 09/04/20 23:59 23:59 23:59 Intake Total 1050 / 1050 Balance 1050 / 1050 General: Alert, Confused HEENT: Atraumatic, PERRLA, EOMI, Normocephalic, - - Left eye with prosthetic globe. Patient does not fully open his right eye for examination. Neck: Supple, No JVD, Negative Carotid Bruits Lungs: Clear to auscultation, Normal air movement Cardiovascular: Regular rate, No murmurs Abdomen: Bowel Sounds Present, Soft, Non Tender Extremities: No edema, Capillary Refill Less than 3 Seconds Skin: No rashes, No breakdown Musculoskeletal: No Tenderness to Palpation of Joints or Extremities Neurological: - - Does follow commands to assess cranial nerves. Psych/Mental Status: Normal Affect, Appropriate Microbiology Past 72 Hours 09/04/20 21:10 Mucosa - Nose Influenza Types A,B Direct FA (HA) - Final Laboratory Results 09/04/20 20:32: WBC 8.2, RBC 5.29, Hgb 16.8 H, Hct 48.3, MCV 91.3, MCH 31.8, MCHC 34.8, RDW Std Deviation 42.1, RDW Coeff of Ivana 12.8, Plt Count 237, MPV 10.5, Immature Gran % (Auto) 0.500, Neut % (Auto) 66.7, Lymph % (Auto) 13.2 L, [place] % (Auto) 17.6 H, Eos % (Auto) 1.5, Baso % (Auto) 0.5, Absolute Neuts (auto) 5.5, Absolute Lymphs (auto) 1.09, Nucleated RBC % 0 09/04/20 20:32: PT 13.1, INR 1.0, APTT 31.5 09/04/20 20:32: Sodium 138, Potassium 3.6, Chloride 100, Carbon Dioxide 33.0 H, Anion Gap 5, BUN 24 H, Creatinine 1.43 H, Estim Creat Clear Calc 40.51, Est GFR (MDRD) Af Amer 61, Est GFR (MDRD) Non-Af 50 L, BUN/Creatinine Ratio 16.8, Glucose 111 H, Calcium 9.3, Total Bilirubin 0.50, AST 34, ALT 70 H, Alkaline Phosphatase 79, Troponin I < 0.015, Total Protein 7.5, Albumin 3.0 L, Globulin 4.5 H, Albumin/Globulin Ratio 0.7 L, Lipase 117 09/04/20 20:50: Lactic Acid 1.0 09/04/20 21:05: Urine Color Yellow, Urine Clarity Cloudy, Urine pH 6.5, Ur Specific [place] 1.010, Urine Protein 30 H, Urine Glucose (UA) Normal, Urine Ketones 5 H, Urine Occult Blood 150 H, Urine Nitrite Positive H, Urine Bilirubin Negative, Urine Urobilinogen Normal, Ur Leukocyte Esterase 500 H, Urine RBC 25- 50 SEEN, Urine WBC 50-100 SEEN, Ur Squamous Epith Cells 0 SEEN, Ur Transition Epith Cell 0-5 SEEN, Urine Bacteria 4+, Hyaline Casts 0-5 SEEN, Urine Mucus 0 SEEN 09/04/20 21:10: COVID-19 (GENIA) Pending Current Medications Sodium Chloride () 1,000 mls @ 150 mls/hr IV .[id number] [facility] Last Admin: 09/04/20 22:22 Dose: 150 mls/hr Documented by: Assessment/Plan All Active Problems Acute encephalopathy (Acute) UTI (Acute) Sepsis (Acute) Constipation (Acute) Sepsis (Acute) The patient is a 79 year old M with a significant history of Alzheimer dementia; 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 Sepsis secondary to UTI SIRS criteria: Fever; tachypnea. Review of emergency department labs showed abnormal urinalysis. Source of infection: urine. Lactic acid 1.0 Urine culture and blood culture was obtained at emergency department; follow Review of record shows that urine culture on 09/22/2019 was remarkable for presu mptive E. coli and Klebsiella pneumonia. Both organisms were susceptible to ceftriaxone. Received ceftriaxone at the emergency department. Ceftriaxone continued. Supportive treatment with IV fluids. Acute encephalopathy To prevent aspiration would hold home blood pressure medications and keep patient n.p.o. Encephalopathy from UTI. Of note patient with baseline dementia. Abnormal liver enzymes ALT of 70; mildly elevated Trend Dehydration. Patient with elevated BUN and erythrocytosis IV fluids as above. Hold hydrochlorothiazide. Constipation Abdomen and pelvis CT showed constipation. Dulcolax suppository ordered. Hypertension. Blood pressure is low normal. Hold home hydrochlorothiazide. Gentle IV hydration. Trend blood pressures. CKD Stable DVT prophylaxis Subcutaneous Lovenox ordered. Inpatient E&M: 18000 Init Hosp L3
[2020-09-05 00:19] VITALS: BP 109/77; PULSE 69; RESP 20; TEMP 36.8; O2SAT 94
[2020-09-05 00:23] VITALS: BMI 26.0
[2020-09-05 00:28] VITALS: BMI 26.0
[2020-09-05] MEDS: Bisacodyl 10 MG Suppository RC (00:49)
[2020-09-05 06:03] VITALS: BP 142/79; PULSE 74; RESP 16; TEMP 36.6; O2SAT 94
[2020-09-05 07:03] LABS: Absolute Lymphocyte Count 0.99 X10^3/uL (0.83-4.51); Absolute Neutrophil Count 5.1 X10^3/uL (2.0-7.7); Basophil# 0.03 X10^3/uL; Basophil% 0.4 % (0-1); Eosinophils% 2.5 % (0-5); Hematocrit 48.1 % (40-54); Hemoglobin 15.5 g/dL (13.0-16.5); Lymphocyte # 0.99 X10^3/ul (4.0); Lymphocyte % 12.2 % (19-41); Mean Corp Hgb Conc 32.2 g/dL (32-36); Mean Corpuscular Hgb 29.2 pg (27.0-32.0); Mean Corpuscular Volume 90.8 fL (80-94); Mean Platelet Vol. 10.6 fl (6.2-12.0); Monocyte# 1.71 X10^3/uL; Monocyte% 21.1 % (0-10); NRBC Flagged by Analyzer 0 % (0-5); Neutrophil # 5.13 X10^3/uL (2.7-7.7); Neutrophil % 63.3 % (47-70); POSITIVE DIFFERENTIAL YES; Platelet Count 206 K/mm3 (150-450); RBC Distribution Width CV 12.8 % (11.6-14.6); RBC Distribution Width SD 42.4 fl (35.1-43.9); White Blood Count 8.1 K/mm3 (4.4-11.0)
[2020-09-05 07:06] LABS: Differential Indicated SCAN CRITERIA MET
[2020-09-05 07:30] LABS: ALB/GLOB Ratio 0.7 RATIO (0.9-2.4); AST(SGOT) 34 U/L (15-37); Alanine Aminotransfer ALT/SGPT 56 U/L (16-61); Albumin, Serum 2.6 g/dL (3.2-5.0); Alkaline Phosphatase 72 U/L (45-117); Anion Gap 5 (5-15); BUN 19 mg/dL (7-18); BUN/Creat Ratio 16.5 RATIO (10-20); Calcium,Total 8.6 mg/dL (8.5-10.1); Chloride 104 mmol/L (98-107); Creatinine, Serum 1.15 mg/dL (0.70-1.30); EST Glomerular Filtration Rate 65 mL/min (>60); Est Glom Filt Rate - Afr Amer 78 mL/min (>60); Estimated Creatinine Clearance 50.38 ml/min; Globulin 3.9 g/dL (2.2-4.2); Glucose 98 mg/dL (74-106); Potassium 3.6 mmol/L (3.5-5.1); Protein, Total 6.5 g/dL (6.4-8.2); Sodium Level 139 mmol/L (136-145)
[2020-09-05 07:33] LABS: Platelet Estimate ADEQUATE (ADEQ); Red Cell Morphology NORM C+C NORMAL (NORM C&C)
--- NOTE | 2020-09-05 09:33 | PCM.PN.HOSP ---
Patient Problems: Active and Suspected Problems Acute encephalopathy (Acute) UTI (Acute) Sepsis (Acute) Constipation (Acute) Sepsis (Acute) Reason for Visit: Follow-up on acute metabolic encephalopathy/UTI Subjective: Patient was seen and examined. He appears sleepy. No acute events overnight. His was at the bedside. stated the patient is much improved. Objective: Physical exam: General: Alert, Confused HEENT: Atraumatic, PERRLA, EOMI, Normocephalic, - - Left eye with prosthetic globe. Patient does not fully open his right eye for examination. Neck: Supple, No JVD, Negative Carotid Bruits Lungs: Clear to auscultation, Normal air movement Cardiovascular: Regular rate, No murmurs Abdomen: Bowel Sounds Present, Soft, Non Tender Extremities: No edema, Capillary Refill Less than 3 Seconds Skin: No rashes, No breakdown Musculoskeletal: No Tenderness to Palpation of Joints or Extremities Neurological: - - Does follow commands to assess cranial nerves. Psych/Mental Status: Normal Affect, Appropriate Vitals/I&O's: Vital Signs Temp Pulse Resp BP Pulse Ox 97.8 F 74 16 142/79 H 94 09/05/20 06:03 09/05/20 06:03 09/05/20 06:03 09/05/20 06:03 09/05/20 06:03 Oxygen Flow Rate (L/min) 2 Oxygen Delivery Method Room Air Weight: 80 kg Body Mass Index (BMI) 26.0 Intake and Output for Last 24 Hours 09/03/20 09/04/20 09/05/20 23:59 23:59 23:59 Intake Total 1050 / 1050 365 / 365 Output Total 450 / 450 Balance 1050 / 1050 -85 / -85 Microbiology Past 72 Hours 09/04/20 21:10 Mucosa - Nose Influenza Types A,B Direct FA (HA) - Final Laboratory Results 09/04/20 20:32: WBC 8.2, RBC 5.29, Hgb 16.8 H, Hct 48.3, MCV 91.3, MCH 31.8, MCHC 34.8, RDW Std Deviation 42.1, RDW Coeff of Ivana 12.8, Plt Count 237, MPV 10.5, Immature Gran % (Auto) 0.500, Neut % (Auto) 66.7, Lymph % (Auto) 13.2 L, [place] % (Auto) 17.6 H, Eos % (Auto) 1.5, Baso % (Auto) 0.5, Absolute Neuts (auto) 5.5, Absolute Lymphs (auto) 1.09, Nucleated RBC % 0 09/04/20 20:32: PT 13.1, INR 1.0, APTT 31.5 09/04/20 20:32: Sodium 138, Potassium 3.6, Chloride 100, Carbon Dioxide 33.0 H, Anion Gap 5, BUN 24 H, Creatinine 1.43 H, Estim Creat Clear Calc 40.51, Est GFR (MDRD) Af Amer 61, Est GFR (MDRD) Non-Af 50 L, BUN/Creatinine Ratio 16.8, Glucose 111 H, Calcium 9.3, Total Bilirubin 0.50, AST 34, ALT 70 H, Alkaline Phosphatase 79, Troponin I < 0.015, Total Protein 7.5, Albumin 3.0 L, Globulin 4.5 H, Albumin/Globulin Ratio 0.7 L, Lipase 117 09/04/20 20:50: Lactic Acid 1.0 09/04/20 21:05: Urine Color Yellow, Urine Clarity Cloudy, Urine pH 6.5, Ur Specific [place] 1.010, Urine Protein 30 H, Urine Glucose (UA) Normal, Urine Ketones 5 H, Urine Occult Blood 150 H, Urine Nitrite Positive H, Urine Bilirubin Negative, Urine Urobilinogen Normal, Ur Leukocyte Esterase 500 H, Urine RBC 25-50 SEEN, Urine WBC 50-100 SEEN, Ur Squamous Epith Cells 0 SEEN, Ur Transition Epith Cell 0-5 SEEN, Urine Bacteria 4+, Hyaline Casts 0-5 SEEN, Urine Mucus 0 SEEN 09/04/20 21:10: COVID-19 (GENIA) Cancelled 09/05/20 06:04: WBC 8.1, RBC 5.30, Hgb 15.5, Hct 48.1, MCV 90.8, MCH 29.2, MCHC 32.2 D, RDW Std Deviation 42.4, RDW Coeff of Ivana 12.8, Plt Count 206, MPV 10.6, Immature Gran % (Auto) 0.500, Neut % (Auto) 63.3, Lymph % (Auto) 12.2 L, [place] % (Auto) 21.1 H, Eos % (Auto) 2.5, Baso % (Auto) 0.4, Absolute Neuts (auto) 5.1, Absolute Lymphs (auto) 0.99, Nucleated RBC % 0, Platelet Estimate ADEQUATE, RBC Morphology NORM C+C 09/05/20 06:04: Sodium 139, Potassium 3.6, Chloride 104, Carbon Dioxide 30.0, Anion Gap 5, BUN 19 H, Creatinine 1.15, Estim Creat Clear Calc 50.38, Est GFR (MDRD) Af Amer 78, Est GFR (MDRD) Non-Af 65, BUN/Creatinine Ratio 16.5, Glucose 98, Calcium 8.6, Total Bilirubin 0.40, AST 34, ALT 56, Alkaline Phosphatase 72, Total Protein 6.5, Albumin 2.6 L, Globulin 3.9, Albumin/Globulin Ratio 0.7 L 09/05/20 21:10: COVID-19 (GENIA) Not Detected Current Medications Enoxaparin Sodium (Enoxaparin 40 Mg/0.4 Ml Syringe) 40 mg SC DAILY [facility] Sodium Chloride () 1,000 mls @ 75 mls/hr IV .[id number] [facility] Last Admin: 09/05/20 01:24 Dose: Not Given Documented by: Ceftriaxone Sodium (Rocephin) 1 gm in 50 mls @ 100 mls/hr IV BID [facility] Stop: 09/12/20 10:01 Sodium Chloride () 250 mls @ 15 mls/hr IV .[id number] PRN PRN Reason: Saline Flush Sodium Chloride () 250 mls @ 15 mls/hr IV .[id number] PRN PRN Reason: Additional IVPB Infusion Ondansetron HCl (Ondansetron 4 Mg/2 Ml Vial) 4 mg IV Q8H PRN PRN PRN Reason: NAUSEA/VOMITING Sodium Chloride (0.9% Saline Lock 10 Ml Syringe) 10 - 40 ml IV UD PRN PRN Reason: SALINE FLUSH STROKE Vital Signs/Narrative: Vital Signs Temp Pulse Resp BP Pulse Ox 09/05/20 06:03 97.8 F 74 16 142/79 H 94 Medical Necessity - Tobacco Use Smoking Status: Never smoker Assessment/Plan All Active Problems Acute encephalopathy (Acute) UTI (Acute) Sepsis (Acute) Constipation (Acute) Sepsis (Acute) 1. Sepsis secondary to Acute gram-negative darlene lactose envelope maker UTI, appears to be improving, Continue on IV ceftriaxone, follow-up on urine cultures 2. Acute metabolic encephalopathy secondary to #1 Unable to fully assess from baseline; patient is said to be almost at her baseline per 3. CKD stage III, creatinine appears to be at baseline Admitted with creatinine 1.43, creatinine currently 1.15 Baseline creatinine between 1.1 and 1.3 Continue on reduced IV fluids rate of 50 mils an hour 4. Elevated liver enzymes, resolved 5. Constipation, appears resolved Continue stool softeners 6. Legally blind, status post left eye prosthesis 7. Debility, cognitive impairment, is unable to take care of patient at home PT and OT to evaluate and treat 8. DVT prophylaxis with Lovenox subcu Inpatient E&M: 09195 Subs Hosp L2
[2020-09-05 11:00] VITALS: BP 125/79; PULSE 74; RESP 20; TEMP 37.2; O2SAT 94
[2020-09-05] MEDS: Enoxaparin 40 MG/0.4 ML Syringe SC (11:32)
[2020-09-05] MEDS: 0.9% Normal Saline 1,000 ML 75 ML IV (11:45)
[2020-09-05] MEDS: Ceftriaxone 1 GM/50 ML BAG IV ×2 (11:46→21:49)
[2020-09-05 12:00] VITALS: PULSE 72; RESP 20; O2SAT 94
[2020-09-05 15:00] VITALS: BP 130/80; PULSE 70; RESP 20; TEMP 37.1; O2SAT 94
--- NOTE | 2020-09-05 16:53 | NURSING ---
[id number] repositioning pt in bed, pt pulled out dietrich catheter, blood noted around penis. attends changed. Dr Germain notified. Edda Cain RN
[2020-09-05 20:48] VITALS: BP 144/98; PULSE 82; RESP 18; TEMP 37.7; O2SAT 95
[2020-09-06] MEDS: 0.9% Normal Saline 1,000 ML 75 ML IV ×2 (01:00→14:22)
[2020-09-06 03:38] VITALS: BP 121/99; PULSE 71; RESP 20; TEMP 37.3; O2SAT 95
[2020-09-06 06:32] LABS: Absolute Lymphocyte Count 1.41 X10^3/uL (0.83-4.51); Absolute Neutrophil Count 4.1 X10^3/uL (2.0-7.7); Basophil# 0.04 X10^3/uL; Basophil% 0.5 % (0-1); Eosinophil# 0.28 X10^3/uL; Eosinophils% 3.6 % (0-5); Hematocrit 48.3 % (40-54); Lymphocyte # 1.41 X10^3/ul (4.0); Mean Corp Hgb Conc 33.1 g/dL (32-36); Mean Corpuscular Hgb 29.3 pg (27.0-32.0); Mean Corpuscular Volume 88.5 fL (80-94); Mean Platelet Vol. 9.8 fl (6.2-12.0); Monocyte# 1.93 X10^3/uL; Monocyte% 24.6 % (0-10); NRBC Flagged by Analyzer 0 % (0-5); Neutrophil # 4.13 X10^3/uL (2.7-7.7); Neutrophil % 52.7 % (47-70); POSITIVE DIFFERENTIAL YES; Platelet Count 206 K/mm3 (150-450); RBC Distribution Width CV 12.5 % (11.6-14.6); RBC Distribution Width SD 40.7 fl (35.1-43.9); Red Blood Count 5.46 M/mm3 (4.6-6.2); White Blood Count 7.8 K/mm3 (4.4-11.0)
[2020-09-06 06:33] LABS: Differential Indicated SCAN CRITERIA MET
[2020-09-06 07:00] LABS: ALB/GLOB Ratio 0.6 RATIO (0.9-2.4); AST(SGOT) 34 U/L (15-37); Alanine Aminotransfer ALT/SGPT 52 U/L (16-61); Albumin, Serum 2.5 g/dL (3.2-5.0); Alkaline Phosphatase 68 U/L (45-117); Anion Gap 5 (5-15); BUN 17 mg/dL (7-18); BUN/Creat Ratio 16.3 RATIO (10-20); Calcium,Total 8.6 mg/dL (8.5-10.1); Chloride 108 mmol/L (98-107); Creatinine, Serum 1.04 mg/dL (0.70-1.30); EST Glomerular Filtration Rate 73 mL/min (>60); Est Glom Filt Rate - Afr Amer 88 mL/min (>60); Estimated Creatinine Clearance 55.71 ml/min; Glucose 82 mg/dL (74-106); Potassium 3.6 mmol/L (3.5-5.1); Protein, Total 6.5 g/dL (6.4-8.2); Sodium Level 141 mmol/L (136-145)
[2020-09-06 08:27] VITALS: O2SAT 90
[2020-09-06 09:25] VITALS: PULSE 68
[2020-09-06 09:27] VITALS: BP 139/89; PULSE 66; RESP 18; TEMP 36.8; O2SAT 92
[2020-09-06] MEDS: Enoxaparin 40 MG/0.4 ML Syringe SC (11:04)
[2020-09-06] MEDS: Ceftriaxone 1 GM/50 ML BAG IV ×2 (11:05→22:34)
[2020-09-06] MEDS: Bisacodyl 10 MG Suppository RC (11:05)
--- NOTE | 2020-09-06 11:30 | CASEMGMT ---
JOSE ALBERTO GUY Face to Face with patient for initial transition planning/care coordination assessment. RN CM introduced self and role at [facility]. Patient sitting in chair sleeping, at bedside. Patient did answer when she asked a question. Patient willing to participate in assessment and is able to answer all questions appropriately. Care providers, pharmacy, and demographics verified. Patient wishes to discharge home but will see how patient progresses in the hospital stay. Patient states she has no further needs or concerns at this time. CM to follow for discharge planning needs that may arise. PCP: Danis Specialists: none Preferred Pharmacy: [facility] Insurance: [facility] Medicare Prescription Benefit: yes Living Will/HPOA: yes, yes, LNOK: [place] Living Arrangements: Patient lives with in a condo with 3 steps with railing to enter. Pt has a private paid cg who assists with ADL's along with . Transportation: DME/HHC: Pt denies DME in the home, will monitor for need for DME. Last September pt had HHC from [facility]. is interested in having Palliative Care speak with her during this stay. requesting information on HHC, private duty aides. CM to provide. Pt is on wait list for [facility] memory care unit. Disposition Plan: [place] to [place] with family support, HHC and follow up plans in place.
--- NOTE | 2020-09-06 13:12 | CASEMGMT ---
Palliative Consult placed per hospitalist and screening tool. RN CM notified Palliative Care regarding consult.
--- NOTE | 2020-09-06 13:45 | CASEMGMT ---
Social Work Note YARED received update from family friend that she spoke with pt's Josi and Josi is interested in Palliative Care referral and possibly nursing homer placement. YARED updated RN CM that pt's is requesting Palliative Referral. YARED and RN CM in to speak with pt. SW and RN CM introduced self and role at [facility]. Pt sleeping in chair, pt with history of Dementia. Pt's answered all questions for pt. YARED spoke with Josi regarding possible [facility] placement. Josi states she spoke wit her son and they do NOT want pt going to SNF. Josi states moving pt to a new environment would not be good. YARED asked Josi if she would consider if pt was assist of two with therapy, Josi again stated no to [facility]cf placement. Josi states [facility]. YARED informed Josi that this worker cannot get pt to [facility] as she will need to arrange finances and getting furniture arranged. YARED informed Josi that pt would not remain at [facility] until she can get things with [facility] arranged. YARED informed Josi that if pt is still an assist with two with therapy, she may need to consider SNF. Josi asked how much help she can get at home. Josi educated on HHC, private duty aides etc. RN CM to provide pt with lists. At this time, pt's Josi is refusing SNF. YARED to continue to follow if discharge plans change. Nini Bartholomew SENIOR PRODUCTION SUPERVISOR, JOB PLACEMENT COUNSELOR
--- NOTE | 2020-09-06 14:08 | CASEMGMT ---
Patient/ provided a list of [facility] providers and private duty agencies including quality and resource use data and consistent with the patient?s preferred geographic region, medical needs, and insurance network. Pt reconsidering SNF at this time, YARED Bartholomew updated.
--- NOTE | 2020-09-06 14:13 | CASEMGMT ---
Social Work Note Patient and pt's Josi was provided a list of SNF providers including quality and resource use data and consistent with the patient?s preferred geographic region, medical needs, and insurance network. Josi states again she really doesn't want to send pt to senior care. YARED informed Josi that if is taking 2-3 people to get pt up from chair, SNF may be the safest option. Josi states she spoke with her son who stated that he spoke with [facility] this morning and they are able to accept pt. Josi states pt would admit to Memory Care Unit at [facility]. YARED informed Josi that this worker is not sure if [facility] would be able to accommodate pt with how much assistance pt is requiring at this time. YARED informed Josi that this worker can send updated clinicals to [facility] for them to review if she would like. Josi states to hold off on that at this time and would like to wait and see how pt does. YARED informed Josi that referrals can be on hold for today but if pt remains 2-3 assist then Josi will need to make decision regarding discharge plan sooner than later. Josi states understanding. Plan: CHERISE Bartholomew BEVEL GEAR GENERATOR OPERATOR, DIE ASSEMBLER
[2020-09-06 14:20] VITALS: BP 139/87; PULSE 71; RESP 16; TEMP 36.6; O2SAT 93
--- NOTE | 2020-09-06 14:54 | PN_ITS ---
Patient Problems: Active and Suspected Problems Acute encephalopathy (Acute) UTI (Acute) Sepsis (Acute) Constipation (Acute) Sepsis (Acute) Subjective: Patient seen and examined. Is been managed for acute metabolic encephalopathy and UTI. Patient is awake but lethargic and not really communicating. Unable to do review of systems as patient not really answering questions and is confused. He is hemodynamically stable. Vitals/I&O's: Vital Signs Temp Pulse Resp BP Pulse Ox 97.8 F 71 16 139/87 H 93 09/06/20 14:20 09/06/20 14:20 09/06/20 14:20 09/06/20 14:20 09/06/20 14:20 Oxygen Flow Rate (L/min) 2 Oxygen Delivery Method Room Air Weight: 176 lb 5.917 oz Body Mass Index (BMI) 26.0 Intake and Output for Last 24 Hours 09/04/20 09/05/20 09/06/20 23:59 23:59 23:59 Intake Total 1050 / 1050 1855 / 1855 1266.25 / 1266.25 Output Total 1050 / 1050 Balance 1050 / 1050 805 / 805 1266.25 / 1266.25 General: Alert, Confused, Lethargic HEENT: Atraumatic, PERRLA, EOMI, Normocephalic Oral: Dry Mucosa Neck: Supple, No JVD, Negative Carotid Bruits Lungs: Clear to auscultation, Normal air movement Cardiovascular: Regular rate, Regular Rhythm, Normal S1, Normal S2, No murmurs Abdomen: Bowel Sounds Present, Soft, Non Tender Extremities: No clubbing, No cyanosis, No edema, Capillary Refill Less than 3 Seconds Skin: No rashes, No breakdown Musculoskeletal: No Tenderness to Palpation of Joints or Extremities Lymphatic: No Cervical, Supraclavicular, or Inguinal Adenopathy Neurological: Cranial nerves II-XII grossly intact, Neuro grossly intact, Motor Exam 5/5 strength throughout Psych/Mental Status: Flat Affect, - - confused Microbiology Past 72 Hours 09/04/20 21:05 Urine, Catheterized Urine Culture - Final Klebsiella pneumoniae sp pneum 09/04/20 21:10 Mucosa - Nose Influenza Types A,B Direct FA (HA) - Final Laboratory Results 09/06/20 06:20: WBC 7.8, RBC 5.46, Hgb 16.0, Hct 48.3, MCV 88.5, MCH 29.3, MCHC 33.1, RDW Std Deviation 40.7, RDW Coeff of Ivana 12.5, Plt Count 206, MPV 9.8, Immature Gran % (Auto) 0.600, Neut % (Auto) 52.7, Lymph % (Auto) 18.0 L, [place] % (Auto) 24.6 H, Eos % (Auto) 3.6, Baso % (Auto) 0.5, Absolute Neuts (auto) 4.1, Absolute Lymphs (auto) 1.41, Nucleated RBC % 0 09/06/20 06:20: Sodium 141, Potassium 3.6, Chloride 108 H, Carbon Dioxide 28.0, Anion Gap 5, BUN 17, Creatinine 1.04, Estim Creat Clear Calc 55.71, Est GFR (MDRD) Af Amer 88, Est GFR (MDRD) Non-Af 73, BUN/Creatinine Ratio 16.3, Glucose 82, Calcium 8.6, Total Bilirubin 0.40, AST 34, ALT 52, Alkaline Phosphatase 68, Total Protein 6.5, Albumin 2.5 L, Globulin 4.0, Albumin/Globulin Ratio 0.6 L Diagnostic Data Chest X-Ray 09/04/20 21:24 IMPRESSION: Chronic interestitial changes. No radiographic evidence of acute cardiopulmonary disease. at 2152 Reported and signed by: Lionel Golden MD Electronically Signed: Lionel Golden MD at 21:51 EST Tel , Service support , Abdomen/Pelvis CT 09/04/20 21:38 IMPRESSION: Constipation Individualized dose optimization techniques were used for this CT. at 2241 Reported and signed by: Lionel Golden MD Electronically Signed: Lionel Golden MD at 22:40 EST Tel , Service support , Current Medications Bisacodyl (Bisacodyl 10 Mg Suppository) 10 mg RC DAILY [facility] Last Admin: 09/06/20 11:05 Dose: 10 mg Documented by: Enoxaparin Sodium (Enoxaparin 40 Mg/0.4 Ml Syringe) 40 mg SC DAILY [facility] Last Admin: 09/06/20 11:04 Dose: 40 mg Documented by: Sodium Chloride () 1,000 mls @ 75 mls/hr IV .[id number] [facility] Last Admin: 09/06/20 14:22 Dose: 75 mls/hr Documented by: Ceftriaxone Sodium (Rocephin) 1 gm in 50 mls @ 100 mls/hr IV BID [facility] Stop: 09/12/20 10:01 Last Infusion: 09/06/20 11:35 Dose: Infused Documented by: Sodium Chloride () 250 mls @ 15 mls/hr IV .[id number] PRN PRN Reason: Saline Flush Sodium Chloride () 250 mls @ 15 mls/hr IV .[id number] PRN PRN Reason: Additional IVPB Infusion Ondansetron HCl (Ondansetron 4 Mg/2 Ml Vial) 4 mg IV Q8H PRN PRN PRN Reason: NAUSEA/VOMITING Senna/Docusate Sodium (Senna/Docusate Sodium 1 Tablet) 2 tablet PO BID [facility] Last Admin: 09/06/20 11:24 Dose: Not Given Documented by: Sodium Chloride (0.9% Saline Lock 10 Ml Syringe) 10 - 40 ml IV UD PRN PRN Reason: SALINE FLUSH STROKE Vital Signs/Narrative: Vital Signs Temp Pulse Resp BP Pulse Ox 09/06/20 14:20 97.8 F 71 16 139/87 H 93 Medical Necessity - Tobacco Use Smoking Status: Never smoker Assessment/Plan All Active Problems Acute encephalopathy (Acute) UTI (Acute) Sepsis (Acute) Constipation (Acute) Sepsis (Acute) #Sepsis secondary to UTI * on IV ceftriaxone * urine culture growing Klebsiella pneumoniae, sensitive to ceftriaxone * blood cultures pending * #Acute metabolic encephalopathy due to UTI * Still confused.; it appears that's his baseline * will monitor * #left eye prosthesis: legally blind #Debility * unable to care for him at home. Per 's request, palliative care consulted. * PT OT on board. * DVT prophylaxis: lovenox Inpatient E&M: 34618 Subs Hosp L2
[2020-09-06 20:11] VITALS: BP 141/97; PULSE 72; RESP 18; TEMP 36.9; O2SAT 93
[2020-09-07] MEDS: 0.9% Normal Saline 1,000 ML 75 ML IV ×2 (02:01→15:05)
[2020-09-07 02:28] VITALS: BP 130/77; PULSE 67; RESP 18; TEMP 37.1; O2SAT 93
[2020-09-07] MEDS: 0.9% Saline Lock 10 ML Syringe IV (04:35)
[2020-09-07] MEDS: LORazepam 2 MG/ML Syringe 0.5 MG IV (04:36)
[2020-09-07 06:45] LABS: Absolute Lymphocyte Count 1.18 X10^3/uL (0.83-4.51); Absolute Neutrophil Count 3.6 X10^3/uL (2.0-7.7); Basophil# 0.04 X10^3/uL; Basophil% 0.6 % (0-1); Eosinophil# 0.35 X10^3/uL; Eosinophils% 5.4 % (0-5); Hematocrit 48.1 % (40-54); Hemoglobin 15.5 g/dL (13.0-16.5); Lymphocyte # 1.18 X10^3/ul (4.0); Lymphocyte % 18.2 % (19-41); Mean Corp Hgb Conc 32.2 g/dL (32-36); Mean Corpuscular Hgb 28.6 pg (27.0-32.0); Mean Corpuscular Volume 88.7 fL (80-94); Mean Platelet Vol. 10.7 fl (6.2-12.0); Monocyte# 1.35 X10^3/uL; Monocyte% 20.8 % (0-10); NRBC Flagged by Analyzer 0 % (0-5); Neutrophil # 3.55 X10^3/uL (2.7-7.7); Neutrophil % 54.5 % (47-70); Platelet Count 193 K/mm3 (150-450); RBC Distribution Width CV 12.4 % (11.6-14.6); RBC Distribution Width SD 40.5 fl (35.1-43.9); Red Blood Count 5.42 M/mm3 (4.6-6.2); White Blood Count 6.5 K/mm3 (4.4-11.0)
[2020-09-07 07:11] LABS: ALB/GLOB Ratio 0.6 RATIO (0.9-2.4); AST(SGOT) 30 U/L (15-37); Alanine Aminotransfer ALT/SGPT 43 U/L (16-61); Albumin, Serum 2.4 g/dL (3.2-5.0); Alkaline Phosphatase 62 U/L (45-117); Anion Gap 8 (5-15); BUN 15 mg/dL (7-18); BUN/Creat Ratio 17.7 RATIO (10-20); Calcium,Total 8.3 mg/dL (8.5-10.1); Chloride 111 mmol/L (98-107); Creatinine, Serum 0.85 mg/dL (0.70-1.30); EST Glomerular Filtration Rate 92 mL/min (>60); Est Glom Filt Rate - Afr Amer 112 mL/min (>60); Estimated Creatinine Clearance 68.16 ml/min; Globulin 3.7 g/dL (2.2-4.2); Glucose 76 mg/dL (74-106); Potassium 3.4 mmol/L (3.5-5.1); Protein, Total 6.1 g/dL (6.4-8.2); Sodium Level 143 mmol/L (136-145)
[2020-09-07 07:13] VITALS: O2SAT 92
--- NOTE | 2020-09-07 08:51 | CON.PCM_ITS ---
Problem List (1) Alzheimer's dementia Status: Chronic (2) Constipation Status: Acute Qualifiers: Constipation type: unspecified constipation type Qualified Code(s): K59.00 - Constipation, unspecified (3) Acute encephalopathy Status: Acute (4) UTI Status: Acute (5) Hypertension Status: Chronic (6) Sepsis Status: Acute History of Present Illness Date of Consult: 09/07/20 Requesting physician: [] Primary care physician: Dr. Patrick Moscoso MD - History of Present Illness The patient is a 79 year old M with a past medical history of Alzheimer's dementia and chronic constipation, presented to the ED 09/04/2020 with worsening altered mental status and fever. He lives at home with his and she reported symptoms started 2 days prior to presentation following his second COVID-19 vaccination. She was unable to get him up to the bathroom at home and he was unable to ambulate. Last bowel movement on admission was 08/29/2020. reported similar symptoms with his last UTI. is interested in palliative care, states that she would like him to go to an extended care facility as she is no longer able to properly care for his needs at home. Other PMH includes legal blindness with left eye prosthesis, hypertension, and urge incontinence. During the course of his hospitalization, chest x-ray showed chronic interstitial changes. 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 Urine culture was growing Klebsiella pneumoniae. Patient was given IV antibiotics and IV fluid resuscitation. As of 09/06, he was awake but still somewhat lethargic. He has received 2 doses of Ativan, which has been partially effective. Reports patient saw Dr. Guerrero, neurology in the past until he left the area. He does not currently have a neurologist. Notes that her patient's mother and brother had early onset dementia. Patient is continent of bowel only. He was feeding himself over a month ago, but now seems to be unable. He does not like it when other people assist him. He was walking on his own until 1 month ago as well. He is currently nonambulatory. She estimates he sleeps approximately 12 to 14 hours/day. He used to have very good intake at 100% on most meals, however again in the last 1 month he eats 25 to 40% of his meals. Does better with breakfast. He has recently become physical with caregivers as well and is having difficulty recognizing family members. His vision is poor at baseline, legally blind and has left eye prosthesis. He knows his 's voice and seems to be combed by that on most occasions. She reports his memory loss in the last 1 month has been significant. Overall, he has had a rapid decline in the last 1 month. Spoke with , Yamileth regarding plan of care. Explained hospice and palliative care and what palliative department can offer. She is interested in ongoing/outpatient care. We will have our nurse go out to see the patient within 3 days of discharge. Yamileth cell phone number is [phone]. [] Patient Problems: Chronic Problems Alzheimer's dementia (Chronic) Hypertension (Chronic) Urge incontinence (Chronic) Surgical History: - - Prosthetic eye surgery; bilateral shoulder surgery; finger surgery; trabeculectomy. Psychiatric History: Anxiety Home Medications: Ambulatory Orders Medication Instructions Recorded Memantine HCl 10 mg PO BID 09/22/19 Multivit-Min/FA/Lycopen/Lutein 1 tab PO DAILY 09/22/19 [Centrum Silver Men Tablet] Cetirizine HCl [Zyrtec] 5 mg PO BID 09/04/20 Hydrochlorothiazide [Hctz] 25 mg PO DAILY 09/04/20 Sertraline HCl 25 mg PO DAILY 09/04/20 Allergies No Known Allergies Allergy (Verified 09/04/20 20:47) Maternal History Items: Dementia Paternal History Items: - - Patient'S who provided history did not know patient's paternal medical history. - Social History Lives: Spouse/ Significant Other Smoking Status: Never smoker Alcohol: None Drugs: None Code Status: DNRCC-A Review of Systems Constitutional: Reports: Anorexia, Weakness, Fatigue. Denies: Chills, Fever Eyes: Reports: - - legally blind HEENT: Reports: Difficulty Hearing. Denies: Difficulty Swallowing, Sinus Congestion, Sore Throat Cardiovascular: Denies: Chest Pain, Edema Respiratory: Denies: Cough, Shortness of Breath Gastrointestinal: Reports: Constipation. Denies: Abdominal Pain, Nausea, Vomiting Genitourinary: Reports: Incontinence Skin: Reports: Pruritis, Rash, - - Multiple actinic keratoses Neurological: Reports: Balance problems, Confusion. Denies: Slurred speech, Difficulty swallowing, Numbness, Tingling, Seizures Psychiatric: Reports: Anxiety Hematologic/ Lymphatic: Denies: Easy Bruising, Easy Bleeding Physical Exam Subjective: Patient laughing at questions, has 1 or 2 word answers to some questions. Very minimal verbal communication. Difficulty following commands. General: Alert, No apparent distress, Confused HEENT: Atraumatic, - - Left eye prosthesis. Poor overall vision Oral: Moist Mucosa Neck: Supple, No JVD Lungs: Clear to auscultation, Diminished, - - Poor inspiratory effort Cardiovascular: Regular rate, Regular Rhythm, Normal S1, Normal S2, No murmurs, No rub noted, No Gallop Abdomen: Bowel Sounds Present, Non Tender, Distended Extremities: No clubbing, No cyanosis, No edema Skin: - - Maculopapular rash to entire back Musculoskeletal: No Tenderness to Palpation of Joints or Extremities Lymphatic: No Cervical, Supraclavicular, or Inguinal Adenopathy Neurological: - - Neuro exam limited secondary to cognitive deficits. No focal deficits noted. No slurred speech. Psych/Mental Status: Impulsive, Restless, - - Alert and oriented x0 Objective: Vital Signs Temp Pulse Resp BP Pulse Ox 98.7 F 67 18 130/77 H 93 09/07/20 02:28 09/07/20 02:28 09/07/20 02:28 09/07/20 02:28 09/07/20 02:28 Oxygen Flow Rate (L/min) 2 Oxygen Delivery Method Room Air Weight: 80 kg Body Mass Index (BMI) 26.0 Intake and Output for Last 24 Hours 09/05/20 09/06/20 09/07/20 23:59 23:59 23:59 Intake Total 1855 / 1855 1566.25 / 1566.25 1023.75 / 1023.75 Output Total 1050 / 1050 Balance 805 / 805 1566.25 / 1566.25 1023.75 / 1023.75 Microbiology Past 72 Hours 09/04/20 21:05 Urine Culture - Final Urine, Catheterized Klebsiella pneumoniae sp pneum 09/04/20 21:10 Influenza Types A,B Direct FA (HA) - Final Mucosa - Nose Laboratory Tests Past 24 Hrs 09/07/20 09/07/20 06:08 06:08 WBC 6.5 RBC 5.42 Hgb 15.5 Hct 48.1 MCV 88.7 MCH 28.6 MCHC 32.2 RDW Std Deviation 40.5 RDW Coeff of Ivana 12.4 Plt Count 193 MPV 10.7 Immature Gran % (Auto) 0.500 Neut % (Auto) 54.5 Lymph % (Auto) 18.2 L [place] % (Auto) 20.8 H Eos % (Auto) 5.4 H Baso % (Auto) 0.6 Absolute Neuts (auto) 3.6 Absolute Lymphs (auto) 1.18 Nucleated RBC % 0 Sodium 143 Potassium 3.4 L Chloride 111 H Carbon Dioxide 24.0 Anion Gap 8 BUN 15 Creatinine 0.85 Estim Creat Clear Calc 68.16 Est GFR (MDRD) Af Amer 112 Est GFR (MDRD) Non-Af 92 BUN/Creatinine Ratio 17.7 Glucose 76 Calcium 8.3 L Total Bilirubin 0.40 AST 30 ALT 43 Alkaline Phosphatase 62 Total Protein 6.1 L Albumin 2.4 L Globulin 3.7 Albumin/Globulin Ratio 0.6 L Assessment/Plan All Active Problems Acute encephalopathy (Acute) UTI (Acute) Sepsis (Acute) Constipation (Acute) Sepsis (Acute) 79-year-old male with Alzheimer's dementia, admitted to [facility] for acute encephalopathy secondary to UTI. Palliative care consultation requested by his , Yamileth. The following was all personally discussed with Yamileth. 1. Anxiety/agitation: He was given one-time doses of Ativan this morning at 0419 and 0754. Take sertraline at home, not ordered here. Would consider Haldol 0.5 mg every 6 hours as needed for anxiety and agitation once discharged to the [facility]. For the time being, okay to continue with Ativan as it seemed effective this morning. 2. Alzheimer's dementia: reports significant progression over last several months. Takes memantine 10 mg BID at home. No longer following with neurologist, saw Dr. Guerrero in the past. Dementia seems to have significantly progressed over the last 1 month. Suspect his acute increase in confusion was due to infection, however also feel his dementia is progressing as he has acute decline in ADLs at home as well. FAST stage estimated at 6D, however other symptoms such as no longer able to walk would put him at 7C. He is likely hospice appropriate but we are going to start out with palliative care and go from there. is agreeable to this plan. Would consider discontinuation of memantine as side effects likely outweigh benefit at this point. 3. Acute on chronic constipation: Significant on CT, however he has been getting medications to assist and had several large bowel movements 09/06. When discharged, would recommend ongoing stool softeners/aides to avoid constipation as this can be agitating and painful. 4. Rash: Covering entire back, small amount on left arm and across mid abdomen. Notified nurse, she is to let the hospitalist know. He is on ceftriaxone, possible allergy? Thank you for the opportunity to participate in this patient's care, please do not hesitate to contact [facility] with any further questions or concerns.
[2020-09-07 12:16] VITALS: BP 138/80; PULSE 72; RESP 16; TEMP 36.6; O2SAT 97
[2020-09-07] MEDS: Nystatin Powder 15gm Bottle 1 APPLIC TOPICAL ×2 (12:20→22:52)
[2020-09-07] MEDS: Enoxaparin 40 MG/0.4 ML Syringe SC (12:20)
[2020-09-07] MEDS: Senna/Docusate Sodium 1 Tablet 2 TABLET PO (12:21)
[2020-09-07] MEDS: Potassium Chloride Oral Tablet 20 MEQ 40 MEQ PO (12:30)
--- NOTE | 2020-09-07 13:47 | CASEMGMT ---
Addendum entered by Nini Bartholomew 09/07/20 15:30: YARED placed a call to [facility] and spoke with Nicolasa. Nicolasa confirms she has been speaking to pt's and son. YARED informed Nicolasa that with therapy pt is assist of 2-3 and asked if they can accommodate that level of care. Nicolasa states they would probably use a arjun lift for pt. Nicolasa asked for clinicals to be faxed to her so they can review and make sure pt is appropriate for [facility] at this time. Nicolasa states that pt's family would also need to move furniture into pt's apartment before pt can discharge. YARED informed Nicolasa that this worker did mention to pt's Yamileth that they would have to move pt's furniture before pt could admit. YARED faxed clinicals to [facility] Original Note: Social Work Note SW back in to speak with pt's Yamileth to continue discussion of discharge plans. Yamileth states pt will be going to [facility] at discharge. Yamileth states both she and her son have talked to Nicolasa at [facility] who states they can accommodate pt at any level of care. They can also arrange therapy for pt 2x a week. YAERD asked if this worker could also reach out to Nicolasa just to confirm and if this worker can send updated clinicals, Josi gave this worker permission to do so. YARED will fax clinicals to [facility] once PT/OT works with pt today. Nini Bartholomew SUPPLY CHAIN BUSINESS ANALYST, MRP CONTROLLER
[2020-09-07] MEDS: Bisacodyl 10 MG Suppository RC (13:54)
[2020-09-07] MEDS: Menthol/Lanolin/Calamine/Znox 113 GM Tube 1 APPLIC TOPICAL ×3 (13:54→22:57)
[2020-09-07] MEDS: DiphenhydrAMINE 50 MG/ML Syringe 25 MG IV (13:55)
--- NOTE | 2020-09-07 14:19 | PCM.PN.HOSP ---
Patient Problems: Active and Suspected Problems Acute encephalopathy (Acute) UTI (Acute) Sepsis (Acute) Constipation (Acute) Sepsis (Acute) Subjective: Patient seen and examined. He was alert and sitting in a chair. However he still quite mute and does not really answer questions. Bedside swallow evaluation done by his nurse and patient passed. He has remained hemodynamically stable. Vitals/I&O's: Vital Signs Temp Pulse Resp BP Pulse Ox 97.9 F 72 16 138/80 H 97 09/07/20 12:16 09/07/20 12:16 09/07/20 12:16 09/07/20 12:16 09/07/20 12:16 Oxygen Flow Rate (L/min) 2 Oxygen Delivery Method Room Air Weight: 176 lb 5.917 oz Body Mass Index (BMI) 26.0 Intake and Output for Last 24 Hours 09/05/20 09/06/20 09/07/20 23:59 23:59 23:59 Intake Total 1855 / 1855 1566.25 / 1566.25 1023.75 / 1023.75 Output Total 1050 / 1050 Balance 805 / 805 1566.25 / 1566.25 1023.75 / 1023.75 General: Alert, Confused, Lethargic HEENT: Atraumatic, PERRLA, EOMI, Normocephalic Oral: Dry Mucosa Neck: Supple, No JVD, Negative Carotid Bruits Lungs: Clear to auscultation, Normal air movement Cardiovascular: Regular rate, Regular Rhythm, Normal S1, Normal S2, No murmurs Abdomen: Bowel Sounds Present, Soft, Non Tender Extremities: No clubbing, No cyanosis, No edema, Capillary Refill Less than 3 Seconds Skin: No rashes, No breakdown Musculoskeletal: No Tenderness to Palpation of Joints or Extremities Lymphatic: No Cervical, Supraclavicular, or Inguinal Adenopathy Neurological: Cranial nerves II-XII grossly intact, Neuro grossly intact, Motor Exam 5/5 strength throughout Psych/Mental Status: Flat Affect, - - confused Microbiology Past 72 Hours 09/04/20 21:05 Urine, Catheterized Urine Culture - Final Klebsiella pneumoniae sp pneum 09/04/20 21:10 Mucosa - Nose Influenza Types A,B Direct FA (HA) - Final Laboratory Results 09/07/20 06:08: WBC 6.5, RBC 5.42, Hgb 15.5, Hct 48.1, MCV 88.7, MCH 28.6, MCHC 32.2, RDW Std Deviation 40.5, RDW Coeff of Ivana 12.4, Plt Count 193, MPV 10.7, Immature Gran % (Auto) 0.500, Neut % (Auto) 54.5, Lymph % (Auto) 18.2 L, [place] % (Auto) 20.8 H, Eos % (Auto) 5.4 H, Baso % (Auto) 0.6, Absolute Neuts (auto) 3.6, Absolute Lymphs (auto) 1.18, Nucleated RBC % 0 09/07/20 06:08: Sodium 143, Potassium 3.4 L, Chloride 111 H, Carbon Dioxide 24.0, Anion Gap 8, BUN 15, Creatinine 0.85, Estim Creat Clear Calc 68.16, Est GFR (MDRD) Af Amer 112, Est GFR (MDRD) Non-Af 92, BUN/Creatinine Ratio 17.7, Glucose 76, Calcium 8.3 L, Total Bilirubin 0.40, AST 30, ALT 43, Alkaline Phosphatase 62, Total Protein 6.1 L, Albumin 2.4 L, Globulin 3.7, Albumin/Globulin Ratio 0.6 L Diagnostic Data Chest X-Ray 09/04/20 21:24 IMPRESSION: Chronic interestitial changes. No radiographic evidence of acute cardiopulmonary disease. at 2152 Reported and signed by: Lionel Golden MD Electronically Signed: Lionel Golden MD at 21:51 EST Tel , Service support , Abdomen/Pelvis CT 09/04/20 21:38 IMPRESSION: Constipation Individualized dose optimization techniques were used for this CT. at 2241 Reported and signed by: Lionel Golden MD Electronically Signed: Lionel Golden MD at 22:40 EST Tel , Service support , Current Medications Bisacodyl (Bisacodyl 10 Mg Suppository) 10 mg RC DAILY [facility] Last Admin: 09/07/20 13:54 Dose: 10 mg Documented by: Calamine/Phenol (Menthol/Lanolin/Calamine/Znox 113 Gm Tube) 1 applic TOPICAL 4X/DAY [facility]; Protocol Last Admin: 09/07/20 13:54 Dose: 1 applicatio Documented by: Diphenhydramine HCl (Diphenhydramine 50 Mg/Ml Syringe) 25 mg IV Q6H PRN PRN PRN Reason: Itching, rash Last Admin: 09/07/20 13:55 Dose: 25 mg Documented by: Enoxaparin Sodium (Enoxaparin 40 Mg/0.4 Ml Syringe) 40 mg SC DAILY [facility] Last Admin: 09/07/20 12:20 Dose: 40 mg Documented by: Sodium Chloride () 1,000 mls @ 75 mls/hr IV .[id number] [facility] Last Admin: 09/07/20 02:01 Dose: 75 mls/hr Documented by: Sodium Chloride () 250 mls @ 15 mls/hr IV .[id number] PRN PRN Reason: Saline Flush Sodium Chloride () 250 mls @ 15 mls/hr IV .[id number] PRN PRN Reason: Additional IVPB Infusion Lorazepam (Lorazepam 2 Mg/Ml Syringe) 1 mg IV Q4H PRN PRN PRN Reason: ANXIETY/AGITATION Nystatin (Nystatin Powder 15gm Bottle) 1 applic TOPICAL BID [facility]; Protocol Last Admin: 09/07/20 12:20 Dose: 1 applicatio Documented by: Ondansetron HCl (Ondansetron 4 Mg/2 Ml Vial) 4 mg IV Q8H PRN PRN PRN Reason: NAUSEA/VOMITING Senna/Docusate Sodium (Senna/Docusate Sodium 1 Tablet) 2 tablet PO BID [facility] Last Admin: 09/07/20 12:21 Dose: 2 tablet Documented by: Sodium Chloride (0.9% Saline Lock 10 Ml Syringe) 10 - 40 ml IV UD PRN PRN Reason: SALINE FLUSH Last Admin: 09/07/20 04:35 Dose: 10 ml Documented by: STROKE Vital Signs/Narrative: Vital Signs Temp Pulse Resp BP Pulse Ox 09/07/20 12:16 97.9 F 72 16 138/80 H 97 Medical Necessity - Tobacco Use Smoking Status: Never smoker Assessment/Plan All Active Problems Acute encephalopathy (Acute) UTI (Acute) Sepsis (Acute) Constipation (Acute) Sepsis (Acute) #Sepsis secondary to UTI on IV ceftriaxone urine culture growing Klebsiella pneumoniae, sensitive to ceftriaxone blood cultures pending #Acute metabolic encephalopathy due to UTI more alert, but still confused and not very communicative will monitor #left eye prosthesis: legally blind #Debility unable to care for him at home. Per 's request, palliative care consulted. PT OT on board. DVT prophylaxis: lovenox Disposition: awaiting placement. Inpatient E&M: 61866 Subs Hosp L2
[2020-09-07 15:01] VITALS: BP 145/87; PULSE 80; RESP 18; TEMP 36.5; O2SAT 94
[2020-09-07 22:47] VITALS: BP 158/88; PULSE 71; RESP 17; TEMP 37.1; O2SAT 92
[2020-09-08 03:05] VITALS: BP 136/87; PULSE 63; RESP 17; TEMP 37.1; O2SAT 93
[2020-09-08] MEDS: DiphenhydrAMINE 50 MG/ML Syringe 25 MG IV (03:12)
[2020-09-08] MEDS: 0.9% Saline Lock 10 ML Syringe IV (03:12)
[2020-09-08] MEDS: LORazepam 2 MG/ML Syringe 1 MG IV (03:12)
[2020-09-08] MEDS: 0.9% Normal Saline 1,000 ML 75 ML IV (03:16)
[2020-09-08 07:18] LABS: Absolute Lymphocyte Count 1.22 X10^3/uL (0.83-4.51); Absolute Neutrophil Count 3.7 X10^3/uL (2.0-7.7); Basophil# 0.03 X10^3/uL; Basophil% 0.5 % (0-1); Eosinophil# 0.33 X10^3/uL; Eosinophils% 5.2 % (0-5); Hematocrit 45.4 % (40-54); Hemoglobin 14.5 g/dL (13.0-16.5); Lymphocyte # 1.22 X10^3/ul (4.0); Lymphocyte % 19.1 % (19-41); Mean Corp Hgb Conc 31.9 g/dL (32-36); Mean Corpuscular Hgb 28.7 pg (27.0-32.0); Mean Corpuscular Volume 89.9 fL (80-94); Mean Platelet Vol. 10.3 fl (6.2-12.0); Monocyte# 1.11 X10^3/uL; Monocyte% 17.4 % (0-10); NRBC Flagged by Analyzer 0 % (0-5); Neutrophil # 3.66 X10^3/uL (2.7-7.7); Neutrophil % 57.3 % (47-70); Platelet Count 181 K/mm3 (150-450); RBC Distribution Width CV 12.6 % (11.6-14.6); RBC Distribution Width SD 41.2 fl (35.1-43.9); Red Blood Count 5.05 M/mm3 (4.6-6.2); White Blood Count 6.4 K/mm3 (4.4-11.0)
[2020-09-08 07:24] VITALS: O2SAT 92
[2020-09-08 07:55] LABS: Anion Gap 5 (5-15); BUN 11 mg/dL (7-18); BUN/Creat Ratio 12.6 RATIO (10-20); Calcium,Total 8.3 mg/dL (8.5-10.1); Chloride 113 mmol/L (98-107); Creatinine, Serum 0.87 mg/dL (0.70-1.30); EST Glomerular Filtration Rate 89 mL/min (>60); Est Glom Filt Rate - Afr Amer 108 mL/min (>60); Estimated Creatinine Clearance 66.59 ml/min; Glucose 86 mg/dL (74-106); Potassium 3.8 mmol/L (3.5-5.1); Sodium Level 145 mmol/L (136-145)
[2020-09-08 09:01] VITALS: BP 116/69; PULSE 55; RESP 20; TEMP 37; O2SAT 95
[2020-09-08] MEDS: Menthol/Lanolin/Calamine/Znox 113 GM Tube 1 APPLIC TOPICAL ×2 (09:13→16:06)
[2020-09-08] MEDS: Nystatin Powder 15gm Bottle 1 APPLIC TOPICAL (09:14)
[2020-09-08] MEDS: Enoxaparin 40 MG/0.4 ML Syringe SC (09:16)
[2020-09-08 10:00] VITALS: BP 106/63; PULSE 54; PULSE 65; RESP 20; TEMP 37; O2SAT 95
--- NOTE | 2020-09-08 10:18 | CASEMGMT ---
Addendum entered by Nini Bartholomew 09/08/20 11:45: YARED received call from Nicolasa at [facility] stating she was unable to reach Yamileth but did call pt's son and pt's bed is able to be delivered today between 2:00-3:00pm, requests transportation be arranged after that time. YARED placed a call to pt's Yamileth. Yamileth confirms pt's bed is being delivered today requests transportation be arranged for 4:00pm. Yamileth states she is at home getting some of pt's belongings to take to [place] and then will be at [facility]. YARED updated physician that pt is able to discharge to [facility] today. Original Note: Social Work Note SW received call from Nicolasa at [facility] stating they are able to accept pt. Nicolasa states she will call pt's Yamileth and let her know as Yamileth will need to provide furniture. Nicolasa states Yamileth will only need to provide a bed and chair today. Nicolasa states once she calls Yamileth regarding furniture she will call this worker back. YARED updated Nicolasa that medically pt is ready for discharge today. YARED waiting for call back from [facility] Nini Bartholomew TECHNICAL ADJUSTER, TECHNOLOGY STRATEGIST
[2020-09-08 11:00] VITALS: PULSE 54
--- NOTE | 2020-09-08 12:00 | CASEMGMT ---
Social Work Note Pt's is currently at [facility] stating she hopes she made the right decision and [facility] is able to care for pt. SW in to speak with pt's Yamileth. YARED informed Yamileth that this worker did send clinicals to [facility] so they are aware how much care pt is requiring at this time and they stated they could accept pt. YARED informed Yamileth that if pt gets to [facility] and they are not able to accommodate pt's needs, [facility] should be able to [facility]. YARED provided support to Yamileth. YARED accessed trip assist and arranged transportation via cot for 4:00pm per Yamileth's request. Transportation form completed and placed on folder and copy on pt's chart. YARED faxed discharge instructions and script to [facility]. Original in SNF folder and copy on pt's chart. YARED placed a call to Nicolasa at [facility] and updated her on discharge time. YARED updated RN. YARED updated Yamileth on transportation time. Plan: [facility] with [facility] transporting pt via cot at 4:00pm Nini WALKER, DRAPERY HEMMER AUTOMATIC
--- NOTE | 2020-09-08 13:13 | TREXTCAR_ITS ---
- Diet 09/07/20 08:27 Diet: Regular - General Type of Dietary Supplement:: Ensure Pudding Is pt able to select menu?: No Diet Comments: assisted feed; Ensure Pudding BID w/ lunch and dinner - Routine Orders/Code Status Enema Type: Fleetz Enema Frequency: Daily PRN Suppository Type: Dulcolax 10mg Suppository Frequency: Daily PRN O2 Frequency: PRN Keep PO Greater than or Equal to (%): 90 Code Status: DNRCC-A - Therapies Weight Bearing: Weight bearing as tolerated Physical Therapy: Eval and Treat Occupational Therapy: Eval and Treat - Allergies/Procedures Done in Hospital Allergies/Adverse Reactions: Allergies No Known Allergies Allergy (Verified 09/04/20 20:47) Procedures: None - Type of Care/Length of Stay Estimated LOS: Convalescent Care Less Than 30 days Type of Care Needed: Skilled Rehab Potential: Fair Prognosis: Fair - Additional Orders/Day of Discharge Day of Discharge: 09/08/20 - Dietary and Speech Recommendations Dietitian Recommendations/Changes: Continue regular diet as tolerated. INSURANCE EXAMINING CLERK consult as needed for swallowing eval. Will add ensure pudding BID w/ meals. - Follow Up Care Primary Care Physician: Patrick Moscoso MD [Primary Care Provider] - Please follow up with your Primary Care Physician in: 1-2 weeks
--- NOTE | 2020-09-08 13:29 | PCM.TXEXTCAR ---
- Diet 09/07/20 08:27 Diet: Regular - General Type of Dietary Supplement:: Ensure Pudding Is pt able to select menu?: No Diet Comments: assisted feed; Ensure Pudding BID w/ lunch and dinner - Routine Orders/Code Status Enema Type: Fleetz Enema Frequency: Daily PRN Suppository Type: Dulcolax 10mg Suppository Frequency: Daily PRN O2 Frequency: PRN Keep PO Greater than or Equal to (%): 90 Code Status: DNRCC-A - Therapies Weight Bearing: Weight bearing as tolerated Physical Therapy: Eval and Treat Occupational Therapy: Eval and Treat - Allergies/Procedures Done in Hospital Allergies/Adverse Reactions: Allergies No Known Allergies Allergy (Verified 09/04/20 20:47) Procedures: None - Type of Care/Length of Stay Estimated LOS: Convalescent Care Less Than 30 days Type of Care Needed: Skilled Rehab Potential: Fair Prognosis: Fair - Additional Orders/Day of Discharge Day of Discharge: 09/08/20 - Dietary and Speech Recommendations Dietitian Recommendations/Changes: Continue regular diet as tolerated. HOME HEALTH OCCUPATIONAL THERAPIST consult as needed for swallowing eval. Will add ensure pudding BID w/ meals. - Follow Up Care Primary Care Physician: Patrick Moscoso MD [Primary Care Provider] - Please follow up with your Primary Care Physician in: 1-2 weeks
--- NOTE | 2020-09-08 13:32 | DS.PCM_ITS ---
Discharge Date and Diagnosis - Problem List Patient Problems: Active and Suspected Problems Acute encephalopathy (Acute) UTI (Acute) Sepsis (Acute) Constipation (Acute) Sepsis (Acute) Date of Admission: 09/07/20 Date of Discharge: 09/08/20 - Primary Discharge Diagnosis Acute Problems: Active Problems Acute encephalopathy (Acute) UTI (Acute) Sepsis (Acute) Constipation (Acute) Sepsis (Acute) - Secondary Discharge Diagnosis Chronic Problems: Chronic Problems Alzheimer's dementia (Chronic) Hypertension (Chronic) Urge incontinence (Chronic) Hospital Course and Treatment Imaging Results: Diagnostic Data Chest X-Ray 09/04/20 21:24 IMPRESSION: Chronic interestitial changes. No radiographic evidence of acute cardiopulmonary disease. at 2152 Reported and signed by: Lionel Golden MD Electronically Signed: Lionel Golden MD at 21:51 EST Tel , Service support , Abdomen/Pelvis CT 09/04/20 21:38 IMPRESSION: Constipation Individualized dose optimization techniques were used for this CT. 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 He also had a fever whilst at home. On admission, labs showed evidence of UTI and was also found to be septic. He was admitted and managed for sepsis due to UTI metabolic encephalopathy due to UTI. He was started on IV ceftriaxone. Urine grew Klebsiella sensitive to ceftriaxone. Blood cultures were negative. Patient stay was uncomplicated and he remained stable. He was discharged to the senior care facility on 09/08/2020 on p.o. cefdinir 300 mg twice daily for 5 days. He is to follow-up with his primary care doctor in 1 to 2 weeks. Patient ws seen and examined prior to discharge. He ws still confused and not answering questions. Review of systems was otherwise negative. Labs and vitals reviewed. Home meds reviewed and reconciled. O/E: Vital Signs Temp Pulse Resp BP Pulse Ox 98.6 F 54 L 20 H 106/63 95 09/08/20 10:00 09/08/20 11:09/08/20 10:09/08/20 10:09/08/20 10:00 General: Alert, Confused, Lethargic HEENT: Atraumatic, PERRLA, EOMI, Normocephalic Oral: Dry Mucosa Neck: Supple, No JVD, Negative Carotid Bruits Lungs: Clear to auscultation, Normal air movement Cardiovascular: Regular rate, Regular Rhythm, Normal S1, Normal S2, No murmurs Abdomen: Bowel Sounds Present, Soft, Non Tender Extremities: No clubbing, No cyanosis, No edema, Capillary Refill Less than 3 Seconds Skin: No rashes, No breakdown Musculoskeletal: No Tenderness to Palpation of Joints or Extremities Lymphatic: No Cervical, Supraclavicular, or Inguinal Adenopathy Neurological: Cranial nerves II-XII grossly intact, Neuro grossly intact, Motor Exam 5/5 strength throughout Psych/Mental Status: Flat Affect, - - confused Plan is for discharge to SNF today Patient Problems: Active and Suspected Problems Acute encephalopathy (Acute) UTI (Acute) Sepsis (Acute) Constipation (Acute) Sepsis (Acute) - Physical Exam Vitals/I&O's: Vital Signs Temp Pulse Resp BP Pulse Ox 98.6 F 54 L 20 H 106/63 95 09/08/20 10:00 09/08/20 11:09/08/20 10:09/08/20 10:09/08/20 10:00 Oxygen Flow Rate (L/min) 2 Oxygen Delivery Method Room Air Weight: 176 lb 5.917 oz Body Mass Index (BMI) 26.0 Intake and Output for Last 24 Hours 09/06/20 09/07/20 09/08/20 23:59 23:59 23:59 Intake Total 1566.25 / 1566.25 1263.75 / 1263.75 Balance 1566.25 / 1566.25 2152. 1263.75 / 1263.75 Microbiology Past 72 Hours 09/04/20 20:50 Blood Culture (Wb) - Anticubital Left Blood Culture - Pre liminary No growth in 48 hours. 09/04/20 20:52 Blood Culture (Wb) - Right Forearm Blood Culture - Preliminary No growth in 48 hours. 09/04/20 21:05 Urine, Catheterized Urine Culture - Final Klebsiella pneumoniae sp pneum Laboratory Results 09/08/20 06:55: WBC 6.4, RBC 5.05, Hgb 14.5, Hct 45.4, MCV 89.9, MCH 28.7, MCHC 31.9 L, RDW Std Deviation 41.2, RDW Coeff of Ivana 12.6, Plt Count 181, MPV 10.3, Immature Gran % (Auto) 0.500, Neut % (Auto) 57.3, Lymph % (Auto) 19.1, [place] % (Auto) 17.4 H, Eos % (Auto) 5.2 H, Baso % (Auto) 0.5, Absolute Neuts (auto) 3.7, Absolute Lymphs (auto) 1.22, Nucleated RBC % 0 09/08/20 06:55: Sodium 145, Potassium 3.8, Chloride 113 H, Carbon Dioxide 27.0, Anion Gap 5, BUN 11, Creatinine 0.87, Estim Creat Clear Calc 66.59, Est GFR (MDRD) Af Amer 108, Est GFR (MDRD) Non-Af 89, BUN/Creatinine Ratio 12.6, Glucose 86, Calcium 8.3 L Current Medications Bisacodyl (Bisacodyl 10 Mg Suppository) 10 mg RC DAILY [facility] Last Admin: 09/08/20 09:30 Dose: Not Given Documented by: Calamine/Phenol (Menthol/Lanolin/Calamine/Znox 113 Gm Tube) 1 applic TOPICAL 4X/DAY [facility]; Protocol Last Admin: 09/08/20 09:13 Dose: 1 applicatio Documented by: Diphenhydramine HCl (Diphenhydramine 50 Mg/Ml Syringe) 25 mg IV Q6H PRN PRN PRN Reason: Itching, rash Last Admin: 09/08/20 03:12 Dose: 25 mg Documented by: Enoxaparin Sodium (Enoxaparin 40 Mg/0.4 Ml Syringe) 40 mg SC DAILY [facility] Last Admin: 09/08/20 09:16 Dose: 40 mg Documented by: Sodium Chloride () 1,000 mls @ 75 mls/hr IV .[id number] [facility] Last Admin: 09/08/20 03:16 Dose: 75 mls/hr Documented by: Sodium Chloride () 250 mls @ 15 mls/hr IV .[id number] PRN PRN Reason: Saline Flush Sodium Chloride () 250 mls @ 15 mls/hr IV .[id number] PRN PRN Reason: Additional IVPB Infusion Lorazepam (Lorazepam 2 Mg/Ml Syringe) 1 mg IV Q4H PRN PRN PRN Reason: ANXIETY/AGITATION Last Admin: 09/08/20 03:12 Dose: 1 mg Documented by: Nystatin (Nystatin Powder 15gm Bottle) 1 applic TOPICAL BID [facility]; Protocol Last Admin: 09/08/20 09:14 Dose: 1 applicatio Documented by: Ondansetron HCl (Ondansetron 4 Mg/2 Ml Vial) 4 mg IV Q8H PRN PRN PRN Reason: NAUSEA/VOMITING Senna/Docusate Sodium (Senna/Docusate Sodium 1 Tablet) 2 tablet PO BID [facility] Last Admin: 09/08/20 09:30 Dose: Not Given Documented by: Sodium Chloride (0.9% Saline Lock 10 Ml Syringe) 10 - 40 ml IV UD PRN PRN Reason: SALINE FLUSH Last Admin: 09/08/20 03:12 Dose: 10 ml Documented by: Discharge Diet: Low fat/ Low Cholesterol Discharge Activity: Return to Normal Activity Weight Bearing Status: Weight bearing as tolerated Home Medications: Medications to take at Discharge Memantine HCl 10 mg PO BID 09/22/19 Multivit-Min/FA/Lycopen/Lutein [Centrum Silver Men Tablet] 1 tab PO DAILY 09/22/19 Cetirizine HCl [Zyrtec] 5 mg PO BID 09/04/20 Hydrochlorothiazide [Hctz] 25 mg PO DAILY 09/04/20 Sertraline HCl 25 mg PO DAILY 09/04/20 Cefdinir [Omnicef [equiv]] 300 mg PO Q12H #10 cap 09/08/20 Following Prescriptions Were Given to Patient: Cefdinir [Omnicef [equiv]] 300 mg PO Q12H #10 cap Prescription Printed Primary Care Physician: Patrick Moscoso MD [Primary Care Provider] - Please follow up with your Primary Care Physician in: 1-2 weeks Patient Instructions: Understanding Urinary Tract Infections (UTIs), Sepsis Disposition: [facility] facility Minutes spent on discharge:: 40 Patient Condition:: Fair Medical Necessity - Tobacco Use Smoking Status: Never smoker Meaningful Use Info Meaningful Use Diagnoses (Choose all that apply): None applicable Inpatient E&M: 84520 Disch Hosp
--- NOTE | 2020-09-08 14:01 | DCINST_ITS ---
- Discharge Diagnoses Current Active Problems: Current Active and Chronic Problems Acute encephalopathy (Acute) Alzheimer's dementia (Chronic) UTI (Acute) Hypertension (Chronic) Urge incontinence (Chronic) Sepsis (Acute) Constipation (Acute) Sepsis (Acute) You will use the following diet at home:: Cardiac Your food should be the consistency of: Regular Your liquids should be the consistency of: Regular/Thin Discharge Activity: Return to Normal Activity Weight Bearing Status: Weight bearing as tolerated Call your doctor if you observe: Fever of 101 or Higher, Shortness of breath, Dizziness, Fainting spells Instructions: Sepsis, Understanding Urinary Tract Infections (UTIs) Allergies/Adverse Reactions: Allergies No Known Allergies Allergy (Verified 09/04/20 20:47) Medications to take at Discharge Memantine HCl 10 mg PO BID 09/22/19 Multivit-Min/FA/Lycopen/Lutein [Centrum Silver Men Tablet] 1 tab PO DAILY 09/22/19 Cetirizine HCl [Zyrtec] 5 mg PO BID 09/04/20 Hydrochlorothiazide [Hctz] 25 mg PO DAILY 09/04/20 Sertraline HCl 25 mg PO DAILY 09/04/20 Cefdinir [Omnicef [equiv]] 300 mg PO Q12H #10 cap 09/08/20 The following prescriptions were given: Cefdinir [Omnicef [equiv]] 300 mg PO Q12H #10 cap Prescription Printed Primary Care Physician: Patrick Moscoso MD [Primary Care Provider] - Please follow up with your Primary Care Physician in: 1-2 weeks Test Results: Test results from this visit will be discussed in further detail at your follow- up appointment, if applicable. Proposed Discharge Date: 09/08/20
[2020-09-08 16:04] VITALS: BP 118/54; PULSE 78; RESP 20; TEMP 37.2; O2SAT 94
== END 2020-09-08 16:32 | disposition skilled nursing facility (03) | DRG 72 ==
LOC: ED 22:37 → MS3 23:27
PROVIDERS: Internal Medicine; Admitting Provider Hospitalist; Emergency Provider Emergency Medicine; PCP Internal Medicine; Visit Provider Student in an Organized Health Care Education/Training Program
DX: G93.49 Other encephalopathy (principal); F02.80 Dementia in other diseases classified elsewhere, unspecified severity, without behavioral disturbance, psychotic disturbance, mood disturbance, and anxiety; G30.9 Alzheimer's disease, unspecified; H54.8 Legal blindness, as defined in USA; H40.9 Unspecified glaucoma; B96.1 Klebsiella pneumoniae [K. pneumoniae] as the cause of diseases classified elsewhere; I12.9 Hypertensive chronic kidney disease with stage 1 through stage 4 chronic kidney disease, or unspecified chronic kidney disease; N18.30 Chronic kidney disease, stage 3 unspecified; K59.09 Other constipation; N39.41 Urge incontinence; F41.9 Anxiety disorder, unspecified; E86.0 Dehydration; Z97.0 Presence of artificial eye; R21 Rash and other nonspecific skin eruption
CPT/HCPCS: 36415; 51702; 71045; 74177; 80048; 80053; 81001; 83605; 83690; 84484; 85025; 85610; 85730; 87040; 87077; 87086; 87088; 87186; 87635; 87804; 93005; 97162; 97166; 97530; 97535; 99285; J7030; Q9967; A4216; U0002; U0003